=== PATIENT | male | born 1940 | race Caucasian/White ===

== ENCOUNTER 2020-09-02 09:15 | Emergency (ER) | payer OTHER ==
[~2020-09-02] VITALS: Ht 172.7 cm; Wt 83.0 kg
[~2020-09-02 09:15] MED LIST: ASPIR 8181 M1 PO; ATEN25 PO; Alph-E-Mixed400 UNIT PO; CHROMIUM400 MCG PO; EUTHYROX112 MCG PO; Grape Seed50 M1 PO; NIAC500 PO; OXYCONTIN10 MG PO; Prinivil10 MG PO; TESTOSTERONE75 G1 TD; UBID10 PO; VALIUM5 M1 PO; VERAPAMIL SR240 M1 PO
[2020-09-02 10:17] LABS: BASOPHILS ABSOLUTE AUTO 0.02 K/mm3 (0.00-0.23); BASOPHILS PERCENT AUTO 0 % (0-2); EOSINOPHILS ABSOLUTE AUTO 0.11 K/mm3 (0.00-0.68); EOSINOPHILS PERCENT AUTO 2 % (0-6); Hematocrit 46.6 % (37.0-53.0); Hemoglobin 15.8 g/dL (13.5-17.5); IMMATURE GRAN ABSOLUTE AUTO 0.01 K/mm3 (0.00-0.10); IMMATURE GRAN PERCENT AUTO 0 % (0-1); LYMPHOCYTES PERCENT AUTO 17 % (21-46); MONOCYTES ABSOLUTE AUTO 0.38 K/mm3 (0.16-1.47); MONOCYTES PERCENT AUTO 8 % (4-13); Mean Corpuscular HGB Conc 33.9 g/dL (31.5-36.5); Mean Corpuscular Volume 94 fL (80-100); Mean Platelet Volume 8.6 fL (9.1-12.4); NEUTROPHILS ABSOLUTE AUTO 3.45 K/mm3 (1.96-9.15); NEUTROPHILS PERCENT AUTO 72 % (41-73); Platelet Count 118 K/mm3 (150-400); RDW Coefficient Variation 12.1 % (11.7-14.2); RDW Standard Deviation 41.6 fL (35.1-46.3); Red Blood Cell Count 4.94 M/mm3 (4.30-5.90); White Blood Cell Count 4.77 K/mm3 (4.00-11.30)
[2020-09-02 10:19] LABS: Source, Urine Clean Catch
[2020-09-02 10:37] LABS: Alanine Aminotransfer (ALT/SGP 22 U/L (12-78); Albumin/Globulin Ratio 1.1 (0.8-1.8); Alk Phos 100 U/L (50-136); Anion Gap 7 mmol/L (6-16); Aspartate Aminotrans (AST/SGOT 20 U/L (12-37); Bilirubin, Total 0.7 mg/dL (0.1-1.0); Blood Urea Nitrogen 11 mg/dL (8-24); Bun/Creatinine Ratio 13.4 (12.0-20.0); CO2, Blood 28 mmol/L (21-32); Calcium, Blood 9.5 mg/dL (8.5-10.1); Chloride, Blood 103 mmol/L (98-108); Creatinine, Blood 0.82 mg/dL (0.60-1.20); Globulin, Blood 3.5 g/dL (2.2-4.0); Glomerular Filtration Rate >60 (60-); Glucose, Blood 120 mg/dL (70-99); Potassium, Blood 4.1 mmol/L (3.5-5.5); Sodium, Blood 138 mmol/L (136-145); Total Protein, Blood 7.5 g/dL (6.4-8.2)
[2020-09-02 10:42] LABS: Bilirubin, Urine Neg (Neg); Blood, Urine Neg (Neg); Glucose Qualitative, Urine Neg (Neg); Ketones, Urine 2+ (Neg); Leukocyte Esterase, Urine Neg (Neg); Nitrite, Urine Neg (Neg); Protein, Urine Neg (Neg); Urobilinogen, Urine NORM (Normal)
[2020-09-02 10:56] LABS: Appearance, Urine Clear (Clear); Color, Urine Yellow (P-Yellow)
[2020-09-02] MEDS ORDERED: Flagyl500 MG PO (11:45)
[2020-09-02] MEDS ORDERED: Cipro500 MG PO (11:45)
== END 2020-09-02 11:51 | disposition home or self-care (01) ==
LOC: ER 09:15
PROVIDERS: Emergency Medicine
DX: K57.32 Diverticulitis of large intestine without perforation or abscess without bleeding (principal); Z79.82 Long term (current) use of aspirin; Z79.899 Other long term (current) drug therapy; Z88.6 Allergy status to analgesic agent; Z88.0 Allergy status to penicillin; Z88.2 Allergy status to sulfonamides; Z88.8 Allergy status to other drugs, medicaments and biological substances; Z95.1 Presence of aortocoronary bypass graft
CPT/HCPCS: 36415; 74176; 80053; 81003; 83690; 85025; 93005; 93010; 99284-25

== ENCOUNTER 2020-09-24 11:18 | Emergency (ER) | payer OTHER ==
[~2020-09-24] VITALS: Ht 185.4 cm; Wt 80.3 kg
[~2020-09-24 11:18] MED LIST changes: +Cipro500 MG PO; +Flagyl500 MG PO
[2020-09-24] MEDS ORDERED: OXYC5 PO (11:58)
[2020-09-24] MEDS ORDERED: COQ-10100 MG PO (12:03)
[2020-09-24] MEDS ORDERED: [UNRECOGNIZED DRUG - OTHER] PO (12:04)
[2020-09-24] MEDS ORDERED: WILD SALMON OIL PO (12:04)
[2020-09-24] MEDS ORDERED: RED YEAST PO (12:05)
[2020-09-24] MEDS ORDERED: UBIDECARENONE PO (12:05)
[2020-09-24] MEDS ORDERED: ALPHA LIPOIC A600 MG PO (12:06)
[2020-09-24 12:21] LABS: BASOPHILS ABSOLUTE AUTO 0.02 K/mm3 (0.00-0.23); BASOPHILS PERCENT AUTO 1 % (0-2); EOSINOPHILS PERCENT AUTO 0 % (0-6); Hematocrit 49.1 % (37.0-53.0); Hemoglobin 16.6 g/dL (13.5-17.5); IMMATURE GRAN ABSOLUTE AUTO 0.01 K/mm3 (0.00-0.10); IMMATURE GRAN PERCENT AUTO 0 % (0-1); LYMPHOCYTES ABSOLUTE AUTO 0.57 K/mm3 (0.84-5.20); LYMPHOCYTES PERCENT AUTO 20 % (21-46); MONOCYTES ABSOLUTE AUTO 0.36 K/mm3 (0.16-1.47); MONOCYTES PERCENT AUTO 13 % (4-13); Mean Corpuscular HGB 31.4 pg (26.0-34.0); Mean Corpuscular HGB Conc 33.8 g/dL (31.5-36.5); Mean Corpuscular Volume 93 fL (80-100); Mean Platelet Volume 9.5 fL (9.1-12.4); NEUTROPHILS ABSOLUTE AUTO 1.92 K/mm3 (1.96-9.15); NEUTROPHILS PERCENT AUTO 67 % (41-73); Platelet Count 112 K/mm3 (150-400); RDW Coefficient Variation 12.6 % (11.7-14.2); RDW Standard Deviation 43.7 fL (35.1-46.3); Red Blood Cell Count 5.28 M/mm3 (4.30-5.90); White Blood Cell Count 2.88 K/mm3 (4.00-11.30)
[2020-09-24 15:51] LABS: Troponin I <0.015 ng/mL (0.000-0.040)
[2020-09-24 16:07] LABS: Alanine Aminotransfer (ALT/SGP 81 U/L (12-78); Albumin, Blood 3.1 g/dL (3.4-5.0); Albumin/Globulin Ratio 0.9 (0.8-1.8); Alk Phos 82 U/L (50-136); Anion Gap 7 mmol/L (6-16); Aspartate Aminotrans (AST/SGOT 68 U/L (12-37); Bilirubin, Total 0.6 mg/dL (0.1-1.0); Blood Urea Nitrogen 11 mg/dL (8-24); Bun/Creatinine Ratio 12.5 (12.0-20.0); CO2, Blood 27 mmol/L (21-32); Calcium, Blood 8.3 mg/dL (8.5-10.1); Chloride, Blood 97 mmol/L (98-108); Creatinine, Blood 0.88 mg/dL (0.60-1.20); Globulin, Blood 3.5 g/dL (2.2-4.0); Glomerular Filtration Rate >60 (60-); Glucose, Blood 85 mg/dL (70-99); Potassium, Blood 4.3 mmol/L (3.5-5.5); Sodium, Blood 131 mmol/L (136-145); Total Protein, Blood 6.6 g/dL (6.4-8.2)
[2020-09-24 16:24] LABS: Source, Urine Voided
[2020-09-24 16:31] LABS: Appearance, Urine Clear (Clear); Bilirubin, Urine Neg (Neg); Blood, Urine Neg (Neg); Color, Urine Yellow (P-Yellow); Glucose Qualitative, Urine Neg (Neg); Ketones, Urine 2+ (Neg); Leukocyte Esterase, Urine Neg (Neg); Nitrite, Urine Neg (Neg); Protein, Urine 1+ (Neg); Urobilinogen, Urine NORM (Normal); pH, Urine 6.5 (5.0-8.0)
[2020-09-24] MEDS ORDERED: ONDA4ODT SL (16:37)
[2020-09-25 09:00] LABS: HBSAG SCREEN Negative (Negative); HEP A AB, IGM Negative (Negative); HEP B CORE AB, IGM Negative (Negative); HEP C VIRUS AB <0.1 (0.0-0.9)
== END 2020-09-24 17:02 | disposition home or self-care (01) ==
LOC: ER 11:18
PROVIDERS: Emergency Medicine
DX: R10.9 Unspecified abdominal pain (principal); G89.29 Other chronic pain; D72.819 Decreased white blood cell count, unspecified; R74.01 Elevation of levels of liver transaminase levels; M54.5 Low back pain; R53.83 Other fatigue; R53.1 Weakness; Z79.899 Other long term (current) drug therapy; Z88.5 Allergy status to narcotic agent; Z88.0 Allergy status to penicillin; Z88.2 Allergy status to sulfonamides; Z88.8 Allergy status to other drugs, medicaments and biological substances; Z88.1 Allergy status to other antibiotic agents; Z95.1 Presence of aortocoronary bypass graft; Z79.82 Long term (current) use of aspirin
CPT/HCPCS: 36415; 71045; 74176; 80053; 80074; 83735; 84484; 85025; 93005; 93010; 99285-25; J7030

== ENCOUNTER 2020-10-03 02:23 | Inpatient (IN) | payer OTHER ==
[~2020-10-03] VITALS: Ht 172.7 cm; Wt 80.3 kg
[~2020-10-03 02:23] MED LIST changes: +ALPHA LIPOIC A600 MG PO; +COQ-10100 MG PO; +METR500 PO; +ONDA4ODT SL; +OXYC5 PO; +RED YEAST PO; +UBIDECARENONE PO; +WILD SALMON OIL PO; +[UNRECOGNIZED DRUG - OTHER] PO
[2020-10-03 02:55] LABS: BASOPHILS ABSOLUTE AUTO 0.02 K/mm3 (0.00-0.23); BASOPHILS PERCENT AUTO 0 % (0-2); EOSINOPHILS ABSOLUTE AUTO 0.02 K/mm3 (0.00-0.68); EOSINOPHILS PERCENT AUTO 0 % (0-6); Hematocrit 39.6 % (37.0-53.0); Hemoglobin 13.5 g/dL (13.5-17.5); IMMATURE GRAN ABSOLUTE AUTO 0.04 K/mm3 (0.00-0.10); IMMATURE GRAN PERCENT AUTO 1 % (0-1); LYMPHOCYTES ABSOLUTE AUTO 0.32 K/mm3 (0.84-5.20); LYMPHOCYTES PERCENT AUTO 5 % (21-46); MONOCYTES ABSOLUTE AUTO 0.55 K/mm3 (0.16-1.47); MONOCYTES PERCENT AUTO 9 % (4-13); Mean Corpuscular HGB 31.6 pg (26.0-34.0); Mean Corpuscular HGB Conc 34.1 g/dL (31.5-36.5); Mean Corpuscular Volume 93 fL (80-100); Mean Platelet Volume 9.8 fL (9.1-12.4); NEUTROPHILS ABSOLUTE AUTO 5.28 K/mm3 (1.96-9.15); NEUTROPHILS PERCENT AUTO 85 % (41-73); Platelet Count 192 K/mm3 (150-400); RDW Coefficient Variation 12.8 % (11.7-14.2); Red Blood Cell Count 4.27 M/mm3 (4.30-5.90); White Blood Cell Count 6.23 K/mm3 (4.00-11.30)
[2020-10-03 03:09] LABS: Alanine Aminotransfer (ALT/SGP 196 U/L (12-78); Albumin, Blood 2.2 g/dL (3.4-5.0); Albumin/Globulin Ratio 0.5 (0.8-1.8); Alk Phos 120 U/L (50-136); Anion Gap 6 mmol/L (6-16); Aspartate Aminotrans (AST/SGOT 182 U/L (12-37); Bilirubin, Total 0.8 mg/dL (0.1-1.0); Blood Urea Nitrogen 13 mg/dL (8-24); Bun/Creatinine Ratio 14.9 (12.0-20.0); CO2, Blood 27 mmol/L (21-32); Calcium, Blood 8.3 mg/dL (8.5-10.1); Chloride, Blood 97 mmol/L (98-108); Creatinine, Blood 0.87 mg/dL (0.60-1.20); Globulin, Blood 4.1 g/dL (2.2-4.0); Glomerular Filtration Rate >60 (60-); Glucose, Blood 114 mg/dL (70-99); Magnesium, Blood 1.8 mg/dL (1.6-2.4); Sodium, Blood 130 mmol/L (136-145); Total Protein, Blood 6.3 g/dL (6.4-8.2); Troponin I <0.015 ng/mL (0.000-0.040)
[2020-10-03] MEDS ORDERED: LISI5 PO (03:30)
[2020-10-03 03:41] LABS: Influenza A, PCR Negative (NEGATIVE); Influenza B, PCR Negative (NEGATIVE); Resp Syncytial Virus, PCR Negative (NEGATIVE); SARS-Cov-2 (COVID-19) PCR, MMC Negative (NEGATIVE)
[2020-10-03 03:53] LABS: Source, Urine Clean Catch
[2020-10-03 03:55] LABS: Appearance, Urine Clear (Clear); Bilirubin, Urine Neg (Neg); Blood, Urine Neg (Neg); Color, Urine Amber (P-Yellow); Glucose Qualitative, Urine Neg (Neg); Ketones, Urine Neg (Neg); Leukocyte Esterase, Urine 1+ (Neg); Nitrite, Urine Neg (Neg); Protein, Urine 2+ (Neg); Urobilinogen, Urine NORM (Normal)
[2020-10-03 03:55] LABS: Free Thyroxine 1.19 ng/dL (0.70-1.60); Thyroid Stimulating Hormone 1.06 uIU/mL (0.360-4.800); Triiodothyronine, Free 1.02 pg/mL (2.18-3.98)
[2020-10-03 04:01] LABS: Bacteria Mod /hpf; Red Blood Cells, Urine 0-2 /hpf (0-2); Squamous Epithelial Cells Not Seen /hpf (Few)
[2020-10-03 06:04] LABS: Influenza A, PCR Negative (NEGATIVE); Influenza B, PCR Negative (NEGATIVE); Resp Syncytial Virus, PCR Negative (NEGATIVE); SARS-Cov-2 (COVID-19) PCR, MMC Positive (NEGATIVE)
[2020-10-03 10:54] LABS: C-REACTIVE PROTEIN, EXT RANGE 16.7 mg/dL (0.000-0.300)
--- NOTE | 2020-10-03 15:11 | NUR ---
REPORT GIVEN TO YOVANY YEAGER ON MEDICAL.
--- NOTE | 2020-10-03 18:28 | NUR ---
PT ADMITTED FROM PCU 16 AROUND 1515- ALERT AND ORIENTED, AMBULATED SBA W/C TO BED, SLOW BUT ADQ STRENGTH. OXYGEN AT 2L, SATS 96%. LUNGS CLEAR, OCCASIONAL COUGH MIN PRODUCTION. ORIENTED TO ROOM SET UP AND CALL LIGHT.
--- NOTE | 2020-10-03 18:31 | NUR ---
SUMMARY- PT ALERT AND ORIENTED. TOLERATING FOOD AND FLUIDS. GETS UP TO BED SIDE COMMODE INDEPENDANT WITH STANDBY FOR SAFETY. VSS AFIBRILE, OXYGEN 2L. RESP EVEN UNLABORED. WILL REPORT TO NIGHT RN
--- NOTE | 2020-10-04 04:03 | NUR ---
SHIFT SUMMARY ASSUMED CARE OF PT AT 1900. PT IS A/OX4. HEART SOUNDS REGULAR, LUNG SOUNDS HAVE CRACKLES AT THE BASES, PT DENIES SOB. PT TOOK O2 OF AT THE BEGINNING OF THE SHIFT. SATURATIONS REMAINED ABOVE 90%. PT IS SBA TO COMMODE. NO ACUTE EVENTS DURING THE NIGHT. PT DID NOT SLEEPT WELL. CALL LIGHT IN REACH, BED IN LOWEST POSITION.
[2020-10-04 05:13] LABS: BASOPHILS ABSOLUTE AUTO 0.03 K/mm3 (0.00-0.23); BASOPHILS PERCENT AUTO 1 % (0-2); EOSINOPHILS PERCENT AUTO 0 % (0-6); Hematocrit 42.2 % (37.0-53.0); Hemoglobin 14.2 g/dL (13.5-17.5); IMMATURE GRAN ABSOLUTE AUTO 0.03 K/mm3 (0.00-0.10); IMMATURE GRAN PERCENT AUTO 1 % (0-1); LYMPHOCYTES ABSOLUTE AUTO 0.38 K/mm3 (0.84-5.20); LYMPHOCYTES PERCENT AUTO 6 % (21-46); MONOCYTES ABSOLUTE AUTO 0.26 K/mm3 (0.16-1.47); MONOCYTES PERCENT AUTO 4 % (4-13); Mean Corpuscular HGB 31.3 pg (26.0-34.0); Mean Corpuscular HGB Conc 33.6 g/dL (31.5-36.5); Mean Corpuscular Volume 93 fL (80-100); Mean Platelet Volume 10.1 fL (9.1-12.4); NEUTROPHILS PERCENT AUTO 88 % (41-73); Platelet Count 225 K/mm3 (150-400); RDW Standard Deviation 44.2 fL (35.1-46.3); Red Blood Cell Count 4.53 M/mm3 (4.30-5.90)
[2020-10-04 05:51] LABS: Alanine Aminotransfer (ALT/SGP 162 U/L (12-78); Albumin, Blood 2.2 g/dL (3.4-5.0); Albumin/Globulin Ratio 0.5 (0.8-1.8); Alk Phos 121 U/L (50-136); Anion Gap 7 mmol/L (6-16); Aspartate Aminotrans (AST/SGOT 95 U/L (12-37); Bilirubin, Total 0.5 mg/dL (0.1-1.0); Blood Urea Nitrogen 22 mg/dL (8-24); CO2, Blood 28 mmol/L (21-32); Calcium, Blood 8.9 mg/dL (8.5-10.1); Chloride, Blood 101 mmol/L (98-108); Creatinine, Blood 0.79 mg/dL (0.60-1.20); Globulin, Blood 4.3 g/dL (2.2-4.0); Glomerular Filtration Rate >60 (60-); Glucose, Blood 165 mg/dL (70-99); Lactate Dehydrogenase (Ld),Bld 183 U/L (100-240); Magnesium, Blood 2.4 mg/dL (1.6-2.4); Potassium, Blood 3.5 mmol/L (3.5-5.5); Sodium, Blood 136 mmol/L (136-145); Total Protein, Blood 6.5 g/dL (6.4-8.2)
--- NOTE | 2020-10-04 11:59 | NUR ---
Patient is sitting on EOB and alert. Patient tells me at length about his life starting in the late 50's until the present. Patient talks about family unit complications, his careers, his many surgeries, his current relationships and his spiritual journey (which began [employer] and for decades until now he has been a member of the [employer] churches. Patient talks about his Akiko's concerns for his health. I provide therapeutic listening and prayer. Patient responds well and shows signs of an elevated mood.
--- NOTE | 2020-10-04 17:34 | NUR ---
SUMMARY- PT ALERT AND ORIENTED. GETS UP TO THE BSC INDEPENDANT- STEADY ON FEET, KNOWS LIMITS. PT'S LUNGS CLEAR, MIN COUGH. BP LOW THIS AM, HELD TENORMIN AND LISINOPRIL AND NOTIFIED DR MARTINEZ. DR MARTINEZ OK'D LISINOPRIL AND DOSE GIVEN A LITTLE AFTER LUNCH. PT TOLERATING PO FOOD AND FLUIDS. AFIBRILE AND SATS MID 90'S ON ROOM AIR. DRESSINGS APPLIED TO 2 OPEN AREAS ON FEET. SEE ORDERS.
--- NOTE | 2020-10-04 18:04 | NUR ---
PT DECLINES BLOOD SUGAR CHECKS, STATING HE ONLY CHECKS ONCE A DAY AND JUST STARTED HIS ORAL AGENTS. AND REFUSING INSULIN ANYWAY. WILL PASS ON TO KARLA RN AND ADJUST ORDERS WITH DR APOLINAR GARNER.
--- NOTE | 2020-10-05 04:12 | NUR ---
SHIFT SUMMARY ASSUMED CARE OF PT AT 1900. PT IS A/OX4. HEART SOUNDS REGULAR, LUNG SOUNDS HAVE FINE CRACKLES AT BASES, DENIES SOB. PT DECLINED GLUCOSE CHECKS BUT WAS EDUCATED ABOUT STEROIDS AND AGREED TO ONE. PT WOUNDS ON FEET ARE C/D/I. PUT USED URINAL AT BEDSIDE. URINE CLEAR AND YELLOW. NO ACUTE EVENTS DURING THE NIGHT. PT SLEPT T/O THE NIGHT. CALL LIGHT IN REACH, BED IN LOWEST POSTION, WILL CONTINUE TO MONITOR.
[2020-10-05 05:10] LABS: BASOPHILS ABSOLUTE AUTO 0.02 K/mm3 (0.00-0.23); BASOPHILS PERCENT AUTO 0 % (0-2); EOSINOPHILS PERCENT AUTO 0 % (0-6); Hematocrit 41.5 % (37.0-53.0); Hemoglobin 13.7 g/dL (13.5-17.5); IMMATURE GRAN ABSOLUTE AUTO 0.03 K/mm3 (0.00-0.10); IMMATURE GRAN PERCENT AUTO 0 % (0-1); LYMPHOCYTES ABSOLUTE AUTO 0.49 K/mm3 (0.84-5.20); LYMPHOCYTES PERCENT AUTO 7 % (21-46); MONOCYTES ABSOLUTE AUTO 0.28 K/mm3 (0.16-1.47); MONOCYTES PERCENT AUTO 4 % (4-13); Mean Corpuscular HGB 30.3 pg (26.0-34.0); Mean Corpuscular Volume 92 fL (80-100); Mean Platelet Volume 9.8 fL (9.1-12.4); NEUTROPHILS ABSOLUTE AUTO 6.02 K/mm3 (1.96-9.15); NEUTROPHILS PERCENT AUTO 88 % (41-73); Platelet Count 262 K/mm3 (150-400); RDW Coefficient Variation 12.9 % (11.7-14.2); Red Blood Cell Count 4.52 M/mm3 (4.30-5.90); White Blood Cell Count 6.84 K/mm3 (4.00-11.30)
[2020-10-05 05:41] LABS: Alanine Aminotransfer (ALT/SGP 122 U/L (12-78); Albumin, Blood 2.1 g/dL (3.4-5.0); Albumin/Globulin Ratio 0.5 (0.8-1.8); Alk Phos 120 U/L (50-136); Anion Gap 4 mmol/L (6-16); Aspartate Aminotrans (AST/SGOT 54 U/L (12-37); Bilirubin, Total 0.4 mg/dL (0.1-1.0); Blood Urea Nitrogen 24 mg/dL (8-24); Bun/Creatinine Ratio 30.7 (12.0-20.0); CO2, Blood 29 mmol/L (21-32); Calcium, Blood 9.1 mg/dL (8.5-10.1); Chloride, Blood 106 mmol/L (98-108); Creatinine, Blood 0.78 mg/dL (0.60-1.20); Glomerular Filtration Rate >60 (60-); Glucose, Blood 196 mg/dL (70-99); Potassium, Blood 4.2 mmol/L (3.5-5.5); Sodium, Blood 139 mmol/L (136-145); Total Protein, Blood 6.1 g/dL (6.4-8.2)
--- NOTE | 2020-10-05 18:04 | NUR ---
SHIFT SUMMARY PT AXO, PLEASANT AND COOPERATIVE WITH CARE. VSS. PT UP AD JOSEFINA TO BSC. IV PATENT AND SALINE LOCKED. 93% ON RA. NO ACUTE CHANGES THIS SHIFT. BED IN LOW POSITION, CALL LIGHT WITHIN REACH. MEDICATED FOR PAIN PER EMAR THOUGH PATIENT STATES THAT THE PAIN "NEVER GOES AWAY."
--- NOTE | 2020-10-06 04:29 | NUR ---
PAINTER RAILROAD CAR SUMMARY PT A&OX4, ABLE TO MAKE NEEDS KNOWN, PLEASANT AND COOPERATIVE TO CARE. PT MEDICATED FOR LOWER BACK PAIN PER EMAR. PT DENIES CP, SOB, OR N&V. RESP EVEN AND UNLABORED, SATS 93% RA. PT CALM AND RESTED IN BED T/O SHIFT. BED AT LOWEST POSITION, CALL LIGHT WITHIN REACH.
[2020-10-06 05:58] LABS: BASOPHILS ABSOLUTE AUTO 0.03 K/mm3 (0.00-0.23); BASOPHILS PERCENT AUTO 0 % (0-2); EOSINOPHILS PERCENT AUTO 0 % (0-6); Hematocrit 42.7 % (37.0-53.0); IMMATURE GRAN ABSOLUTE AUTO 0.04 K/mm3 (0.00-0.10); IMMATURE GRAN PERCENT AUTO 1 % (0-1); LYMPHOCYTES ABSOLUTE AUTO 0.63 K/mm3 (0.84-5.20); LYMPHOCYTES PERCENT AUTO 7 % (21-46); MONOCYTES ABSOLUTE AUTO 0.62 K/mm3 (0.16-1.47); MONOCYTES PERCENT AUTO 7 % (4-13); Mean Corpuscular HGB 30.6 pg (26.0-34.0); Mean Corpuscular HGB Conc 32.8 g/dL (31.5-36.5); Mean Corpuscular Volume 93 fL (80-100); Mean Platelet Volume 9.4 fL (9.1-12.4); NEUTROPHILS ABSOLUTE AUTO 7.19 K/mm3 (1.96-9.15); NEUTROPHILS PERCENT AUTO 84 % (41-73); Platelet Count 338 K/mm3 (150-400); RDW Coefficient Variation 13.2 % (11.7-14.2); RDW Standard Deviation 45.5 fL (35.1-46.3); Red Blood Cell Count 4.57 M/mm3 (4.30-5.90); White Blood Cell Count 8.51 K/mm3 (4.00-11.30)
[2020-10-06 06:18] LABS: Alanine Aminotransfer (ALT/SGP 127 U/L (12-78); Albumin, Blood 2.3 g/dL (3.4-5.0); Albumin/Globulin Ratio 0.6 (0.8-1.8); Alk Phos 120 U/L (50-136); Anion Gap 5 mmol/L (6-16); Aspartate Aminotrans (AST/SGOT 82 U/L (12-37); Bilirubin, Total 0.4 mg/dL (0.1-1.0); Blood Urea Nitrogen 25 mg/dL (8-24); Bun/Creatinine Ratio 32.1 (12.0-20.0); CO2, Blood 30 mmol/L (21-32); Calcium, Blood 9.1 mg/dL (8.5-10.1); Chloride, Blood 104 mmol/L (98-108); Creatinine, Blood 0.78 mg/dL (0.60-1.20); Globulin, Blood 3.8 g/dL (2.2-4.0); Glomerular Filtration Rate >60 (60-); Glucose, Blood 182 mg/dL (70-99); Potassium, Blood 4.3 mmol/L (3.5-5.5); Sodium, Blood 139 mmol/L (136-145); Total Protein, Blood 6.1 g/dL (6.4-8.2)
--- NOTE | 2020-10-06 18:09 | NUR ---
PT AOX4 AND COOPERATIVE OF CARE. PT HAS BEEN PLEASANT AND CALLS APPROPRIATELY. PT USES WALKER TO AMBULATE AND WAS ABLE TO TAKE A SHOWER WITH MINIMAL ASSIST. PT DENIED ANY PAIN AND REQUESTED NEW BANDAGES FOR HIS FEET SO HE COULD TO THE WOUND CARE. FEET WOUNDS LOOK TO BE HEALING. PT'S CBG HAS BEEN GOING UP TODAY AND LAST ONE WAS 322. PT CONTINUES TO REFUSE INSULIN AT THIS TIME. WILL CONTINUE TO MONITOR.
--- NOTE | 2020-10-06 21:27 | NUR ---
LATE ENTRY 1899 RN INFORMED THIS RN THAT PT HAS BEEN REFUSING INSULIN BUT WILL TAKE ORAL GLYCEMIC CONTROL MEDICATION. 2029 PT REFUSED TO HAVE CBG DONE. INSULIN NOT GIVEN.
--- NOTE | 2020-10-06 22:07 | NUR ---
2138 PT'S DAUGHTER CALLED WITH QUESTIONS OF PT COMING HOME TOMORROW. ASKED THIS RN QUESTIONS ABOUT MEDICATION, VITAL SIGNS, AND PT'S ABILITY TO DO ADLS. ASKED THIS RN IF PERSON COMING TO PICK PT UP SHOULD TAKE PRECAUTIONS, THIS RN ADVISED TO HAVE PERSON WEAR MASK. PT'S DAUGHTER EXPRESSED GRATITUDE FOR TAKING TIME TO ANSWER QUESTIONS.
--- NOTE | 2020-10-07 05:36 | NUR ---
SHIFT SUMMARY NO ACUTE CHANGES THIS SHIFT. PT IS EAGER TO GO HOME TODAY. PT'S DAUGHTER CALLED FOR UPDATE, SEE NOTE. PT HAD SOME TROUBLE SLEEPING, THIS RN OFFERED MELATONIN, PT DECLINED. PT IS A&O X4, IND IN ROOM, CALLS APPROPRIATELY. USES URINAL AND WALKER TO BSC. PT IS LAYING IN BED WITH EYES CLOSED, EVEN AND UNLABORED RESPIRATIONS. BED IN LOWERED POSITION WITH SIDE RAILS UP X2 FOR SAFETY. CALL LIGHT AND PERSONAL ITEMS WITH IN REACH. NO APPARENT NEEDS OR DISTRESS AT THIS TIME, WILL CONTINUE TO MONITOR UNTIL REPORT GIVEN TO DAY RN.
[2020-10-07] MEDS ORDERED: DEXA6 PO (11:12)
[2020-10-07] MEDS ORDERED: GLIP5 PO (11:30)
--- NOTE | 2020-10-07 15:46 | NUR ---
PT DISCHARGED TODAY. PT AOX4 AND COOPERATIVE OF CARE. PT RECIEVED HIS LAST REMDESIVIR PRIOR TO DISCHARGE. PT HAS BEEN DOING WELL INDEPENDENTLY IN ROOM AND HAS BEEN ON RA. PT USES WALKER AND CALLS APPROPRIATELY. NO DISTRESS NOTED AND ALL PAPERWORK REVIEWED. FRIEND WHO ALREADY HAS HAD COVID WAS COMMING TO DRIVE PT HOME. PERSONAL BELONGS WERE COLLECTED AND SENT WITH PT. PT ESCORTED OUT WITH MASK ON IN WHEEL CHAIR.
== END 2020-10-07 14:33 | disposition home or self-care (01) | DRG 177 ==
LOC: ER 02:23 → PCU 02:24 → MEDS 02:24 → PCU 02:24 → MEDS 15:13
PROVIDERS: Emergency Medicine; Family Medicine; ADMIT Internal Medicine
PROC: 3E0333Z Introduction of Anti-inflammatory into Peripheral Vein, Percutaneous Approach (ICD-10-PCS; principal; 2020-10-04)
PROC: XW033E5 Introduction of Remdesivir Anti-infective into Peripheral Vein, Percutaneous Approach, New Technology Group 5 (ICD-10-PCS; 2020-10-04)
DX: U07.1 COVID-19 (principal); J12.89 Other viral pneumonia; J96.01 Acute respiratory failure with hypoxia; E87.1 Hypo-osmolality and hyponatremia; N39.0 Urinary tract infection, site not specified; E11.9 Type 2 diabetes mellitus without complications; G89.4 Chronic pain syndrome; I25.10 Atherosclerotic heart disease of native coronary artery without angina pectoris; Z95.1 Presence of aortocoronary bypass graft; M54.9 Dorsalgia, unspecified; I25.2 Old myocardial infarction
CPT/HCPCS: 0241U; 36415; 71260; 80053; 81001; 82947; 83605; 83615; 83735; 83880; 84145; 84439; 84443; 84481; 84484; 85025; 85379; 86140; 87086; 93005; 93010; 96365; 96375; 96376; 99285-25; A9270-GY; G0378; J1940; J7030; J7040; Q9967

== ENCOUNTER → 2020-12-10 | Outpatient (CLI) | payer OTHER, SELFPAY ==
[~2020-12-10] MED LIST changes: +DEXA6 PO; +GLIP5 PO; +LISI5 PO
== END | disposition home or self-care (01) ==
LOC: LAB 15:17 → LAB SHORT 15:17
DX: E11.69 Type 2 diabetes mellitus with other specified complication (principal); M86.171 Other acute osteomyelitis, right ankle and foot
CPT/HCPCS: 88305; 88311

== ENCOUNTER → 2021-11-18 | Outpatient (CLI) | payer OTHER | END | disposition home or self-care (01) | LOC: LAB SHORT 14:03 | DX: E11.42 Type 2 diabetes mellitus with diabetic polyneuropathy (principal); E11.621 Type 2 diabetes mellitus with foot ulcer; L97.524 Non-pressure chronic ulcer of other part of left foot with necrosis of bone; M86.9 Osteomyelitis, unspecified | CPT/HCPCS: 87070; 87071; 87075; 87077; 87186; 87205 ==

== ENCOUNTER 2023-02-03 09:01 | Inpatient (IN) | payer OTHER ==
[2023-02-03] VITALS (16 sets, daily range): BP systolic 128–201; BP diastolic 70–115
[~2023-02-03] VITALS: Ht 172.7 cm; Wt 83.3 kg
[2023-02-03] MEDS ORDERED: Ventolin5 MG/1 ML INH (09:46)
[2023-02-03] MEDS ORDERED: ALPHA LIPOIC ACID (09:46)
[2023-02-03] MEDS ORDERED: ATEN25 PO (09:47)
[2023-02-03] MEDS ORDERED: Chromium Pico400 MCG (09:47)
[2023-02-03] MEDS ORDERED: COENZYME Q10200 MG PO (09:47)
[2023-02-03] MEDS ORDERED: ASPIR 8181 M1 PO (09:47)
[2023-02-03] MEDS ORDERED: GLIP5 PO (09:48)
[2023-02-03] MEDS ORDERED: DIAZ5 PO (09:48)
[2023-02-03] MEDS ORDERED: Grape Seed50 M1 (09:49)
[2023-02-03] MEDS ORDERED: [UNRECOGNIZED DRUG - OTHER] (09:49)
[2023-02-03] MEDS ORDERED: [UNRECOGNIZED DRUG - OTHER] PO (09:50)
[2023-02-03] MEDS ORDERED: LINE600 PO (09:51)
[2023-02-03] MEDS ORDERED: Prinivil10 MG PO (09:51)
[2023-02-03] MEDS ORDERED: LEVSOD112 PO (09:51)
[2023-02-03] MEDS ORDERED: NIAC500 PO (09:52)
[2023-02-03] MEDS ORDERED: [UNRECOGNIZED DRUG - OTHER] (09:53)
[2023-02-03] MEDS ORDERED: OXYCODONE PO (09:54)
[2023-02-03] MEDS ORDERED: ONELAX FIBER T368 GM (09:55)
[2023-02-03] MEDS ORDERED: RED YEAST RICE (09:55)
[2023-02-03] MEDS ORDERED: SALMON OIL PO (09:56)
[2023-02-03] MEDS ORDERED: VERA240ER PO (09:57)
[2023-02-03] MEDS ORDERED: TOCO1000 PO (09:57)
--- NOTE | 2023-02-03 16:13 | NUR ---
CALL PLACED TO DR. LAGUNAS CLARIFICATION OF HEPARIN DRIP NEEDED PRIOR TO STARTING INFUSION. LEFT MESSAGE WITH CALL BACK NUMBER REQUESTING RETURN CALL. RN TO CONTINUE TO MONITOR.
--- NOTE | 2023-02-03 19:45 | NUR ---
PT ARRIVED TO ICU AT 1420 ARRIVES VIA BED, TRANSFERRED FROM IR. A/O. O2 SAT > 95% ON ROOM AIR, LUNGS CTA. CONTINUOUS CARDIAC MONITORING, SR, BP STABLE. DIET ORDERED, PT HAD ENSURE BUT DECLINES ADDITIONAL FOOD, BS NORMOACTIVE, DENIES NAUSEA/VOMITING. VOIDS USING URINAL. SKIN WITH DRESSING TO RIGHT GREAT TOE PLACED BY DR. LAGUNAS PER PT. RIGHT FEM ARTERIAL SHEATH IN PLACE INFUSING HEPARIN AND TPA. ORDERS VERIFIED BY DR. LAGUNAS. PLAN IS TO RETURN TO IR TOMORROW FOR COMPLETION OF PROCEDURE. HOSPITALIST CONSULT, DR. GALVAN TO BEDSIDE, ADMISSION COMPLETED.
[2023-02-04] VITALS (39 sets, daily range): BP systolic 67–232; BP diastolic 41–119
--- NOTE | 2023-02-04 03:01 | NUR ---
SHIFT SUMMARY: At the beginning of my shift, pt called complaining of severe left leg pain. Medicated with dilaudid, oxycodone and tylenol. Pain unresolved despite interventions. I called the hospitalist electronic maintenance supervisor and received orders to increase the oxycodone dose to 10mg q4hr. Pulses checked using doppler q2hrs, unable to find pedal pulses on either leg. Post-tibial pulse present by doppler on right side but absent on left. Cath site checked q1 hour. Initially, the site was soft, clean, dry and intact. At around 2300, I noticed a medium sized hematoma forming in the right groin. I called Dr. Collins who instructed me to hold manual pressure for 30min. Manual pressure held and size of hematoma decreased significantly. I also told him that the fibrinogen level dropped from 450 to 184, and he was unconcerned. Dr. Collins to bedside to examine patient. Dr. Collins was unconcerned with the size of the hematoma and amount of oozing from cath site. Order received to increase frequency of dilaudid IV pushes for pain and instructed to give midazolam for anxiety. Received orders for anti-hypertensive PRNS. At around 0015, the patient reported increased swelling and firmness of the left leg along with excruciating pain unresolved by pain medication. I contacted Dr. Collins and received order to stop TPA and place surgical consult. house calls nurse orthopedic surgeon contacted and TPA stopped. Dr. Collins to bedside- order received to stop heparin infusion. Pt made NPO. He has only drank water and a little bit of ensure so far during my shift. Patient's sister Elida updated via phone. At around 0100, I noticed that the hematoma had returned on his right groin and was slightly larger than before based on my markings. I held manual pressure until orthopedic surgeon came to bedside to evaluate. Holding manual pressure decreases the size of the hematoma, but it slowly grows again when pressure is released and I noticed increased bleeding from the site. Dressing was saturated and no longer adhering well, so the dressing was changed. Charge nurse consulted and fem-stop applied with pressure set at 90mmhg at 0145. Plan is for patient to go to the OR emergently for fasciotomy. 0226- patient taken to OR.
--- NOTE | 2023-02-04 05:59 | NUR ---
SHIFT SUMMARY Pt. 2: Patient arrived from OR at 0400. Post anesthesia, he is drowsy and confused yet oriented to self and place. Repeatedly tries to pull at lines and move around in the bed. 1:1 RN at bedside for now. Left lower extremity wrapped in Joshua wrap- unable to assess. Left foot looks more dusky/ purple than before he left. Pulses absent in left foot, doppler pulse present on right posterior tibial. R groin site bruised yet soft, less swollen than prior to surgery. Patient reports minimal pain. Pressure monitoring set up for R femoral sheath. Art line showing hypertension. PRNs given. As of 0600, his SBP is running in the 130s-140s. He has not needed PRN meds for pain and he is now sleeping. R groin site remains soft with some bruising and minimal oozing.
[2023-02-04 06:00] LABS: BASOPHILS ABSOLUTE AUTO 0.04 K/mm3 (0.00-0.23); BASOPHILS PERCENT AUTO 0 % (0-2); EOSINOPHILS PERCENT AUTO 0 % (0-6); Hematocrit 45.8 % (37.0-53.0); Hemoglobin 16.1 g/dL (13.5-17.5); IMMATURE GRAN ABSOLUTE AUTO 0.04 K/mm3 (0.00-0.10); IMMATURE GRAN PERCENT AUTO 0 % (0-1); LYMPHOCYTES ABSOLUTE AUTO 0.76 K/mm3 (0.84-5.20); LYMPHOCYTES PERCENT AUTO 5 % (21-46); MONOCYTES ABSOLUTE AUTO 1.04 K/mm3 (0.16-1.47); MONOCYTES PERCENT AUTO 7 % (4-13); Mean Corpuscular HGB 29.9 pg (26.0-34.0); Mean Corpuscular HGB Conc 35.2 g/dL (31.5-36.5); Mean Corpuscular Volume 85 fL (80-100); Mean Platelet Volume 8.8 fL (9.1-12.4); NEUTROPHILS ABSOLUTE AUTO 12.39 K/mm3 (1.96-9.15); NEUTROPHILS PERCENT AUTO 87 % (41-73); Platelet Count 168 K/mm3 (150-400); RDW Coefficient Variation 13.1 % (11.7-14.2); RDW Standard Deviation 40.2 fL (35.1-46.3); Red Blood Cell Count 5.38 M/mm3 (4.30-5.90); White Blood Cell Count 14.27 K/mm3 (4.00-11.30)
--- NOTE | 2023-02-04 07:43 | NUR ---
0700--- Assume care of patient Patient is awake and alert. He is oriented to place, mildly to situation, went over what the surgeon did for him last night due to his left leg faciotomy. He is able to move all extremeties however left leg is painful 6/10 which he states is much better than last nights pain. His left food is dusky and cold. Joshua wrap is around left calf. He has an iv to right ac, saline locked. His bp is elevated with activity, sheath to right femoral has an pham in place with good wave form on monitor. Patient voided in urinal this am. Called spouse and gave her an update on pt's condition. Will continue care for the day.
[2023-02-04 09:25] LABS: Bun/Creatinine Ratio 17.3 (12.0-20.0); Calcium, Blood 8.6 mg/dL (8.5-10.1); Creatinine, Blood 0.81 mg/dL (0.60-1.20); Potassium, Blood 4.1 mmol/L (3.5-5.5)
--- NOTE | 2023-02-04 10:42 | NUR ---
Pt. is awake and welcomes my visit. Pts. spouse and a clergy are present. Pt. 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 Facilitate a life review and consider matters of nadia and belief. Pt. is a little unsettled by the unkown clotting concerns in his leg. Listen with empathy and a calming presence. Prayed with Pt., spouse and guest. Pt. and spouse verbalize gratitude for the spiritual care visit, and welcome this community mental health worker to return.
--- NOTE | 2023-02-04 12:09 | NUR ---
1200 NOON PROGRESS NOTE. PATIENT IS AWAKE STILL. HE COMPLAINS OF PAIN FREQ. GIVING HIM HIS OXYCODONE AND DILAUDID. HE GOT A NEW POWERGLIDE PLACED TO RIGHT UPPER ARM. BP BETTER S/P MULTIPLE BP MEDICATION GIVEN. PLACED 3 ABD DRESSING AROUND LEFT CALF TO REINFORCE WITH MAYUR WRAP DUE TO THE BLEEDING LEAKING THROUGH.. MODERATE AMOUNT OF SERIOUS FLUID OUT. UPDATED DAUGHTER ASAD IN [place] VIA PHONE AND SPOUSE AT BEDSIDE WITH FRIEND. AWAITING TO GO BACK TO CATHLAB.
--- NOTE | 2023-02-04 13:51 | NUR ---
Pt kps score is 50%. will formulate plan after intervention. pt hisgh risk for readmission and difficult pain managment. will follow up.
[2023-02-04 17:11] LABS: Hematocrit 40.6 % (37.0-53.0); Hemoglobin 13.9 g/dL (13.5-17.5)
--- NOTE | 2023-02-04 18:15 | NUR ---
S/P UNIX ENGINEER REVASCULARING LFT LEG PATIENT HAS DOPPLER PULSE TO LEFT POST TIBIAL FOOT WARM AND RED/PURPLE COLOR. pATIENT HAS PALE SKIN COLOR ON FACE AND PALE LIPS. LEFT CALF BLEEDING AND SOAKING [address] HAAS CAME TO BEDSIDE AND IS OK WITH THE BLEEDING SHOWING FLOW, TOLD TO REDRESS THE DRESSING AND REINFORCE WHICH THIS RN DID WITH 3 Abd and kerlex and new ac bandage. patients foot turn paler and cooler when leg was elevated to do dressing.. h+h collected levels dropped 3 points from earlier labs. after long discussion pt ok to get blood if it matches to what he is.. he states he is a rare blood type. bp dropped 40 points in 40 min from being back from cathlab. bolus normal saline started for hypotension. connected with dr ashton and he is ok with the iv fluid bolus and the type an cross. and blood if necessary. awaiting results.
[2023-02-04 19:49] LABS: Hematocrit 33.6 % (37.0-53.0); Hemoglobin 11.2 g/dL (13.5-17.5)
--- NOTE | 2023-02-04 21:30 | NUR ---
ASSUMPTION OF CARE/ASSESSMENT: ASSUMED CARE OF PT AT 1900. PT IS A&O X 4, LAYING IN BED AND VERY PLEASANT. PT HAS PAIN COMPLAINT OF 8/10 PAIN IN L. LEG; PT MEDICATED PER EMAR. PT ON RA WITH CLEAR LUNG SOUNDS T/O AND SPO2 94<. SR ON MONITOR WITH HR IN THE 60'S AND SBP 90'S, MAP 62-64. PT HAS HYPOACTIVE BOWEL SOUNDS IN ALL QUADRANTS AND TOLERATING PO INTAKE; PT WILL BE NPO AFTER MIDNIGHT IN PREPARATION FOR SURGERY. PT USING URINAL TO VOID AND BEDPAIN FOR ELIMINATION. PT HAS PALPABLE PULSE IN BUE AND DOPPLER FOR POSTERIOR TIBIAL PULSES; PT FEET ARE COOL TO TOUCH AND CAP REFIL 3 SECONDS<. PT HAS A FACIOTOMY ON BOTH SIDES OF THE LEFT LEG. A NEW DRESSING CHANGE PLACED; L. CALF REMAINS VERY SWOLLEN. PT'S DAUGHTER, ASAD, GIVEN UPDATE AND ALL QUESTIONS ANSWERED AT THIS TIME. DR DUNN CALLED THIS RN AND UPDATED REGARDING TREATMENT PLAN FOR THE PT'S LEFT LEG; PROVIDER STATES THAT THE PT WILL BE GETTING A LEFT BKA. PT AWARE AND AND PROCESSING NEW TREATMENT PLAN. BED LOWERED, CALL LIGHT IN REACH, WILL CONTINUE TO MONITOR.
[2023-02-05] VITALS (80 sets, daily range): BP systolic 61–149; BP diastolic 36–122
[2023-02-05 00:19] LABS: Hematocrit 32.8 % (37.0-53.0)
--- NOTE | 2023-02-05 03:19 | NUR ---
PT UPDATE: BP ARE STARTING TO DROP WITH SBP 60'S AND MAP 51; DR JASSO NOTIFIED AND ORDERS RECIEVED FOR 500 ML BOLUS. PT SLIGHTLY RESPONSIVE AND SBP INCREASED TO 70-80. HALF HOUR AFTER THE FLUID BOLUS ENDED, SBP BEGAN DROPPING AND ARE NOW IN THE 50'S. NEDRA PARKER NOTIFIED AND ANOTHER 500 ML BOLUS ORDERS. IF PT IS NOT RESPONSIVE TO SECONDS FLUID BOLUS ORDERS FOR LEVOPHED TO BE STARTED. PT REMAINS ALERT TO VERBAL STIMULI AND CAN ANSWER ALL ORIENTING QUESTIONS APPROPRITELY, BUT APPEARS MORE WEAK AND SOFT SPOKEN. WHEN HAVING A CONVERSATIONS WITH THE PT, THE PT MUMMBLES WORDS AND FALLS ASLEEP DURING CONVERSATIONS. WILL CONTINUE TO MONITOR CLOSELY.
[2023-02-05 03:40] LABS: Bun/Creatinine Ratio 16.6 (12.0-20.0); Calcium, Blood 7.4 mg/dL (8.5-10.1); Creatinine, Blood 1.57 mg/dL (0.60-1.20); Potassium, Blood 4.5 mmol/L (3.5-5.5)
[2023-02-05 04:51] LABS: BASOPHILS ABSOLUTE AUTO 0.05 K/mm3 (0.00-0.23); BASOPHILS PERCENT AUTO 0 % (0-2); EOSINOPHILS ABSOLUTE AUTO 0.05 K/mm3 (0.00-0.68); EOSINOPHILS PERCENT AUTO 0 % (0-6); Hematocrit 27.5 % (37.0-53.0); Hemoglobin 9.2 g/dL (13.5-17.5); IMMATURE GRAN ABSOLUTE AUTO 0.04 K/mm3 (0.00-0.10); IMMATURE GRAN PERCENT AUTO 0 % (0-1); LYMPHOCYTES ABSOLUTE AUTO 1.69 K/mm3 (0.84-5.20); LYMPHOCYTES PERCENT AUTO 11 % (21-46); MONOCYTES ABSOLUTE AUTO 1.93 K/mm3 (0.16-1.47); MONOCYTES PERCENT AUTO 12 % (4-13); Mean Corpuscular HGB 30.4 pg (26.0-34.0); Mean Corpuscular HGB Conc 33.5 g/dL (31.5-36.5); Mean Platelet Volume 9.8 fL (9.1-12.4); NEUTROPHILS ABSOLUTE AUTO 12.23 K/mm3 (1.96-9.15); NEUTROPHILS PERCENT AUTO 76 % (41-73); Platelet Count 171 K/mm3 (150-400); RDW Coefficient Variation 13.6 % (11.7-14.2); RDW Standard Deviation 45.2 fL (35.1-46.3); Red Blood Cell Count 3.03 M/mm3 (4.30-5.90); White Blood Cell Count 15.99 K/mm3 (4.00-11.30)
[2023-02-05 04:52] LABS: Mean Corpuscular Volume 91 fL (80-100)
--- NOTE | 2023-02-05 06:10 | NUR ---
SHIFT SUMMARY: PT REMAINS HYPOTENSIVE WITH SBP 80'S AND MAP 59. LEVO STARTED AROUND 0430 AND IS NOW RUNNING AT 10 MCG/KG/MIN. PT COMMUNICATION IS BECOMING DIFFICULT; PT NOTED TO BE MUMMBLING MORE AND NOT BEING ABLE TO ARTICULATE CLEARLY. PT IS STILL RESPONSIVE TO VERBAL STIMULI AND ANSWERS MOST OF THE ORIENTING QUESTIONS. PT URINE OUTPUT LOW AT 150 MLS. BED LOWERED, CALL LIGHT IN REACH, WILL CONTINUE TO MONITOR UNTIL ONCOMING RN ARRIVES.
[2023-02-05 06:20] LABS: Albumin, Blood 2.2 g/dL (3.4-5.0)
[2023-02-05 07:50] LABS: Hematocrit 26.5 % (37.0-53.0)
[2023-02-05 08:59] LABS: Source, Urine Foley catheter
[2023-02-05 09:03] LABS: Appearance, Urine Clear (Clear); Bilirubin, Urine Neg (Neg); Blood, Urine 1+ (Neg); Color, Urine Yellow (P-Yellow); Glucose Qualitative, Urine Neg (Neg); Ketones, Urine 2+ (Neg); Leukocyte Esterase, Urine Neg (Neg); Nitrite, Urine Neg (Neg); Protein, Urine 3+ (Neg); Specific Gravity, Urine 1.015 (1.003-1.022); Urobilinogen, Urine NORM (Normal)
[2023-02-05 09:10] LABS: Bacteria Rare /hpf; Mucus Mod (0-Heavy); Red Blood Cells, Urine 0-2 /hpf (0-2); Squamous Epithelial Cells Rare /hpf (Few); White Blood Cells, Urine 0-2 /hpf (0-5)
[2023-02-05 12:15] LABS: Hematocrit 26.2 % (37.0-53.0); Hemoglobin 8.9 g/dL (13.5-17.5)
--- NOTE | 2023-02-05 12:24 | NUR ---
[place] of Care/Update: Care assumed at 0700hr. Patient very drowsy, but rouses to verbal stimuli. Patient having difficulty staying awake and speaking, but oriented x4. BP shows systolic in the 60's, HR stable at sinus rhythm in the 70's-80's. Patient continues to bleed aranza blood from fasciotomy site to lt leg. Levophed gtt infusing at 10mcg/min throughout peripheral IV (IV site wnl), Heparin gtt infusing per pharmacy. NOC shift RN reports several calls made to both Dr. Collins, and NOC hospitalist to report continued bleeding and VS. NOC RN also reports patient continues to refuse blood products r/t fear of receiving "COVID vaccinated" blood. NOC RN also reports plan for patient to receive lt BKA today. This RN titrated levophed up to 15 then 18, the 20mcg/min per continued hypotension (see flow sheet). This RN also placed call to Dr. Collins to report continued bleeding and current VS. Received orders to stop Heparin gtt, and consult Dr. Lacy to determine plan for BKA. paver operator spoke with Dr. Lacy, received orders to consult Dr. Diamond for lt BKA. paver operator then called Dr. Diamond to notify her of the consult. This RN also spoke to patient r/t continued bleeding and concern for if blood transfusion not received. Patient stated "OK, if I really need it". Call then placed to Dr. Coombs, reported current patient status, and asked to come to bedside to discuss blood transfusion. Dr. Coombs conveyed same concern for if blood transfusion not received, patient then consented to receiving blood. X1 unit PRBC's ordered, and consult for Dr. Dixon also placed. Dr. Dixon to bedside approx 0800hr. Received orders for x2L LR bolus, followed by maintenance fluids at 150ml/hr. Holding placement of Central line at that time and central vessels appeared very hypovolemic. Patient's BP has responded well to blood transfusion and fluids, systolics now 110-130. Levophed gtt titrated down to 10mcg/min. Left leg fasciotomy site continues to bleed, but appears significantly less than reported from NOC RN. Peripheral IV and powerglide remain patent and intact. Geophysical E Logger RN attempting PICC line at this time. Will continue to monitor.
--- NOTE | 2023-02-05 15:08 | NUR ---
Spiritual Care Visit. Pt. is resting. Spouse and grandson are present at bedside and welcome my visit. Rapport with spouse is re-established. Spouse encourages this manager cardiovascular to rouse the Pt. Pt. responds as I approach bedside. Pt. displays evidence of gratitude for the care he is receiving. Dr. Diamond arrives to assess the Pt. and change the Pts. dressing. This manager cardiovascular engaged in life review with the spouse during the doctor's assessment. After Dr. khanna, prayed with Pt. and family. Family displays evidence of relief and trust. Pt. and spouse verbalize gratitude for the spiritual care visit.
--- NOTE | 2023-02-05 15:16 | NUR ---
Dr. Diamond to bedside: Dr. Diamond to bedside at this time. Assisted Dr. Diamond with dressing change to lt leg fasciotomy sites (x2). Fasciotomy sites packed with wet leni, then covered with 4x4's, kerlex, and tegan-wrap. Dr. Diamond informed patient, family, and staff that a BKA surgery is not required at this time, and the leg remains too swollen to close the fasciotomy sites. Instructed to continue to monitor site, lower extremity, support vital signs. Keep patient NPO after 0000hr tonight, Dr. Diamond to re-assess the need for surgery tomorrow 02/06/23.
--- NOTE | 2023-02-05 18:50 | NUR ---
Shift Summary: See previous notes r/t patient status and plan of care. Patient's VS remain stable. Levophed gtt titrated down and placed on stand-by shortly before shift change, systolic remains in the 120's, MAP in the 60's. Continues on RA, no dyspnea/SOB. New dressing to lt leg remains C/D/I. Received orders for x2 additional PRBC's per Dr. Dixon, 2nd of those 2 units started just prior to shift change. Bedside report given to NOC RN.
--- NOTE | 2023-02-05 19:00 | NUR ---
ASSUMED CARE ASSUMED CARE OF PATIENT. AWAKE AND ALERT WHEN UPON RN ENTERING ROOM. ORIENTED AND COOPERATIVE WITH CARE. SPEECH IS SOFT. SLIGHTLY SLOWED VERBAL RESPONSE. CONTINUES WITH C/O LEFT LEG/FOOT PAIN. LLE DRSG D/I AT THIS TIME. DOPPLER PULSE NOTED TO RIGHT POSTERIOR TIBIAL ONLY AT THIS TIME. BILATERAL FEET ARE COOL TO TOUCH, BUT OFF-GOING RN STATES THEY ARE WARMER THAN BEFORE. LEFT FOOT HAS DRSG INTACT TO GREAT TOE AND TO POSTERIOR TIBIAL SITE. FOOT IS RED/PUPRLE. PT STATES FOOT IS NUMB. THIRD UNIT PRBC INFUSING AT THIS TIME. MONITOR SHOWS NSR, RATE 90s. BP STABLE. AFEBRILE. RA SATS STABLE. RESPIRATIONS EVEN AND UNLABORED, SHALLOW WHILE ASLEEP. PT DENIES SPB/DYSPNEA. DENIES NAUSEA. ELIZABETH PATENT AND DRAINING TO GRAVITY. SEE SHIFT ASSESSMENT FOR FULL ASSESSMENT.
[2023-02-06] VITALS (68 sets, daily range): BP systolic 95–177; BP diastolic 40–111
[2023-02-06 03:58] LABS: BASOPHILS ABSOLUTE AUTO 0.05 K/mm3 (0.00-0.23); BASOPHILS PERCENT AUTO 0 % (0-2); EOSINOPHILS ABSOLUTE AUTO 0.11 K/mm3 (0.00-0.68); EOSINOPHILS PERCENT AUTO 1 % (0-6); Hematocrit 24.6 % (37.0-53.0); Hemoglobin 8.5 g/dL (13.5-17.5); IMMATURE GRAN ABSOLUTE AUTO 0.07 K/mm3 (0.00-0.10); IMMATURE GRAN PERCENT AUTO 1 % (0-1); LYMPHOCYTES ABSOLUTE AUTO 1.34 K/mm3 (0.84-5.20); LYMPHOCYTES PERCENT AUTO 10 % (21-46); MONOCYTES ABSOLUTE AUTO 1.85 K/mm3 (0.16-1.47); MONOCYTES PERCENT AUTO 14 % (4-13); Mean Corpuscular HGB 29.5 pg (26.0-34.0); Mean Corpuscular HGB Conc 34.6 g/dL (31.5-36.5); Mean Platelet Volume 9.3 fL (9.1-12.4); NEUTROPHILS ABSOLUTE AUTO 9.88 K/mm3 (1.96-9.15); NEUTROPHILS PERCENT AUTO 74 % (41-73); Platelet Count 110 K/mm3 (150-400); RDW Coefficient Variation 15.4 % (11.7-14.2); RDW Standard Deviation 47.2 fL (35.1-46.3); Red Blood Cell Count 2.88 M/mm3 (4.30-5.90)
[2023-02-06 04:00] LABS: Mean Corpuscular Volume 85 fL (80-100)
[2023-02-06 04:14] LABS: Bun/Creatinine Ratio 20.9 (12.0-20.0); Calcium, Blood 8.1 mg/dL (8.5-10.1); Creatinine, Blood 1.39 mg/dL (0.60-1.20); Magnesium, Blood 1.8 mg/dL (1.6-2.4); Phosphorus, Blood 3.1 mg/dL (2.5-4.9); Potassium, Blood 4.5 mmol/L (3.5-5.5)
--- NOTE | 2023-02-06 06:23 | NUR ---
SHIFT SUMMARY NO ACUTE CHANGES. SLEPT WHEN UNDISTURBED. ROUSES EASILY TO VERBAL STIMULI. MEDICATED WITH DILAUDID 0.5MG IV X 1, DILAUDID 1MG IV X 1, AND OXYCODONE 10MG PO X 1 DOSE FOR CONTINUED C/O LLE PAIN. LEFT FOOT REMAINS NUMB. BILATERAL PT PULSES FOUND WITH DOPPLER- LEFT PT PULSE IS VERY FAINT. LLE DRSG IS D/I. VSS. RA SATS STABLE- OCCASIONAL SHORT PERIODS OF APNEA NOTED WHILE SLEEPING. RECEIVED ONE UNIT PRBC DURING SHIFT. LR INFUSING AT 150MLS/HR. ELIZABETH PATENT AND DRAINING TO GRAVITY. TOLERATING CLEAR LIQUIDS- PT HAS BEEN NPO SINCE MIDNO D/T POSSIBILITY OF GOING TO OR THIS AM. WILL REPORT TO ONCOMING RN WHEN AVAILABLE.
--- NOTE | 2023-02-06 07:00 | NUR ---
ASSUME CARE: I have assumed care of this patient.
--- NOTE | 2023-02-06 13:00 | NUR ---
PROVIDER UPDATE: Dr Coronado notified of pt's hypersension. No new orders. Will continue to monitor.
--- NOTE | 2023-02-06 13:19 | NUR ---
Spiritual Care Visit. Pt. is resting. Spouse and Grandson are present and welcome my visit. Family express hope that Pt. will have surgery this afternoon. Listen with empathy. Spouse verbalizes her appreciation for the care the Pt. is receiving. When i approch Pt. he respnds and displays evidence of awareness and engagement. Pt. also displays evidene of somnilence. [place] with Pt. Pt. verbalizes gratitude for the spiritual care visit.
--- NOTE | 2023-02-06 14:39 | NUR ---
Supportive visit this afternoon. Pt resting in bed upon arrival. Lots of family at bedside. Brief update of plan of care. Pt to go for surgery this afternoon. Offered therapeutic listening and validated concerns. Pt and family express appreciation and report no other concerns at this time. Pt and family agreeable for continued supportive visits. Palliative Care will remain available
[2023-02-06 16:05] LABS: Hematocrit 24.3 % (37.0-53.0); Hemoglobin 8.5 g/dL (13.5-17.5)
--- NOTE | 2023-02-06 16:20 | NUR ---
PT TO OR: on ICU bed and transport monitor with OR staff
--- NOTE | 2023-02-06 17:03 | NUR ---
02/06/23 1703 Ruba Ponce PT ON SCHEDULED ANTIBIOTICS AND RECIEVED PRIOR TO ARRIVAL TO OR.
--- NOTE | 2023-02-06 19:05 | NUR ---
SHIFT SUMMARY: Pt back from OR at 185. is currently at bedside. Pt responding to voice and MAE. Samaniego remains in place. No BM this shift. Dilaudid 0.5mg IV was given PRN for pain. PICC and power glide patent. Family at bedside and supportive for much of shift.
[2023-02-06 20:34] LABS: Hematocrit 23.8 % (37.0-53.0); Hemoglobin 8.1 g/dL (13.5-17.5)
--- NOTE | 2023-02-06 22:00 | NUR ---
ASSUMED CARE AT 1900 PT ARRIVED BACK FROM OR AT 1854. HE IS SLOWLY COMING OUT OF ANESTHESIA; ALERT TO VERBAL STIMULI; NEEDS TO BE REORIENTED BUT NOW KNOWS SELF AND FAMILY AT BEDSIDE; REPOSITIONING SELF IN BED; FORGETS LIMITATIONS RIGHT NOW; VERBAL REMINDERS HELPFUL FROM RN AND FAMILY. HE CAME BACK ON 10L NRB AND WAS QUICKLY ABLE TO TITRATE DOWN TO NC FOLLOWED BY RA NOW; SPO2 >98% ON RA. AFEBRILE. HR 70'S. SBP 120. MAP 65-75. ELIZABETH IN PLACE AND DRAINING TO GRAVITY. LLE WRAPPED FROM OR; INSTRUCTED TO NOT REMOVE DRESSING; TANA DRAIN IN PLACE. SEE SHIFT ASSESSMENT FOR FULL ASSESSMENT. PT TY AND TWO OTHER FAMILY MEMBERS AT BEDSIDE AFTER SURGERY. THEY WERE APPROPROPRIATE AND LEFT AT THE END OF VISITING HOURS. DR HERNANDEZ AT BEDSIDE AND ORDERED H&H FOR NOW.
[2023-02-07] VITALS (74 sets, daily range): BP systolic 80–176; BP diastolic 34–96
--- NOTE | 2023-02-07 01:19 | NUR ---
UPDATE PT RECOVERING FROM ANESTHESIA WELL. HE IS NOW A/O X4 AND ABLE TO MAKE HIS NEEDS KNOWN. RECIEVING PAIN MEDS BOTH PO AND IV. LR INFUSING AT 75ML/HR. TOLERATING PO FLUIDS AND JELLO WELL. WHILE SLEEPING PLACED ON 2L NC. WCTM.
[2023-02-07 05:01] LABS: Hematocrit 21.4 % (37.0-53.0); Hemoglobin 7.4 g/dL (13.5-17.5); Mean Corpuscular HGB 30.1 pg (26.0-34.0); Mean Corpuscular HGB Conc 34.6 g/dL (31.5-36.5); Mean Corpuscular Volume 87 fL (80-100); Mean Platelet Volume 9.4 fL (9.1-12.4); Platelet Count 107 K/mm3 (150-400); RDW Coefficient Variation 15.4 % (11.7-14.2); RDW Standard Deviation 48.1 fL (35.1-46.3); Red Blood Cell Count 2.46 M/mm3 (4.30-5.90); White Blood Cell Count 10.74 K/mm3 (4.00-11.30)
[2023-02-07 05:22] LABS: Anion Gap Unable to Calculate mmol/L (6-16); Blood Urea Nitrogen 19 mg/dL (8-24); CO2, Blood 29 mmol/L (21-32); Calcium, Blood 7.3 mg/dL (8.5-10.1); Chloride, Blood 110 mmol/L (98-108); Creatinine, Blood 0.86 mg/dL (0.60-1.20); Glomerular Filtration Rate 86 (60-); Glucose, Blood 117 mg/dL (70-99); Potassium, Blood 4.1 mmol/L (3.5-5.5); Sodium, Blood 136 mmol/L (136-145)
--- NOTE | 2023-02-07 06:02 | NUR ---
END OF SHIFT SUMMARY NO ACUTE EVENTS OVERNIGHT. PT IS A/O X4 AND ABLE TO MAKE HIS NEEDS KNOWN. PAIN CONTROLLED WITH DILAUDID IV AND OXYCODONE PO FOR LLE PAIN WHERE AMPUTATION WAS. MAX TEMP 99.9. 2L NC NEEDED WHILE SLEEPING TO MAINTAIN SPO2 >95%; WHILE AWAKE, RA APPROPRIATE. HR 70'S, NSR. SBP 100-130; DBP 40-50'S; MAP'S IN THE LOW 60'S AFTER PAIN MEDICATION AND WHILE SLEEPING BUT WHEN STIMULATED MAP'S IN THE HIGH 60'S AND LOW 70'S. ELIZABETH IN PLACE WITH 950ML URINE OUTPUT. RT GROIN SITE SHOWS NO SIGNS OF NEW BLEEDING OR HEMATOMA; LLE BANDAGES CLEAN AND INTACT. LR INFUSING AT 75ML/HR. WILL REPORT TO AM RN WHEN AVAILABLE.
--- NOTE | 2023-02-07 08:15 | NUR ---
INITIAL ASSESSMENT PATIENT ALERT AND ORIENTED X 4, PLEASANT AND COOPERATIVE. PATIENT FORGETFUL AT TIMES WHEN ON PAIN MEDS. PATIENT HAS TEMP OF 100.8 DEGREES FAHRENHEIT. L BKA NOTED; DRESSING C/D/I. PATIENT ABLE TO MOVE ALL EXTREMITIES. PRN DILAUDID GIVEN FOR COMPLAINTS OF PAIN TO L STUMP. LUNG SOUNDS CLEAR. BREATHING SHALLOW. PATIENT ON 2 L NC WITH SLEEP AND WITH PAIN MEDICATIONS. PATIENT NORMALLY RA AT HOME. NONPITTING EDEMA NOTED TO TAE. PATIENT IN SR, HR 70S TO 80S. SBP 130S TO 140S. DBP 40S TO 50S. GI WNL. ELIZABETH IN PLACE DRAINING YELLOW COLORED URINE; MILD ODOR PRESENT. SKIN PALE. R GROIN BRUISED. NO BLEEDING OR HEMATOMA NOTED. SITE SOFT TO PALPATION. LR INFUSING AT 75 MLS/ HOUR. BLOOD SUGAR 119. PATIENT DECLINED BEDBATH. BED LOW, CALL LIGHT IN REACH. WILL CONTINUE TO MONITOR PATIENT FREQUENTLY THROUGHOUT SHIFT.
--- NOTE | 2023-02-07 11:52 | NUR ---
TEMP OF 100.5 DEGREES FAHRENHEIT. HR IN THE 80S. SBP 90S TO 130S. DBP 30S TO 70S. DR. GAITAN AWARE OF BP AND MAPS. BLOOD SUGAR 145; NO COVERAGE INDICATED. PRN DILAUDID GIVEN FOR COMPLAINTS OF L BKA PAIN. BED LOW, CALL LIGHT IN REACH. WILL CONTINUE TO MONITOR.
[2023-02-07 12:27] LABS: Hematocrit 19.7 % (37.0-53.0); Hemoglobin 6.5 g/dL (13.5-17.5)
--- NOTE | 2023-02-07 16:30 | NUR ---
PATIENT HAS TEMP OF 100.9 DEGREES FAHRENHEIT. HR IN THE 70S. SBP IN THE 150S. BLOOD SUGAR 114. PATIENT DEPRESSED AND LETHARGIC.
--- NOTE | 2023-02-07 18:57 | NUR ---
SHIFT SUMMARY PATIENT REMAINED MOSTLY ALERT AND ORIENTED. PATIENT HAD PERIODS OF CONFUSION WHICH APPEARS TO BE FROM PAIN MEDICATIONS AND WHEN WAKING UP FROM NAPS. PATIENT LETHARGIC ALL SHIFT. PATIENT HAD TMAX OF 100.9 DEGREES FAHRENHEIT. PATIENT GIVEN PRN DILAUDID AND OXY FOR COMPLAINTS OF PAIN IN L STUMP AND CHRONIC BACK PAIN. PATIENT ON 2 L NC TO KEEP SATS 90% AND GREATER WHILE SLEEPING AND WHILE ON PAIN MEDS. PATIENT REMAINED SR, HR 70S TO 90S. SBP 90S TO 160S. MAPS 30S TO 60S. SCD TO R CALF. PATIENT HAD OK APPETITE. NO BM THIS SHIFT. 800 MLS OF URINE OUT FROM ELIZABETH. ELIZABETH REMOVED AND ATTENDS PLACED. NO CHANGES TO SKIN NOTED. DRESSING TO L BKA CHANGED BY DR. HERNANDEZ THIS AM. PATIENT REPOSITIONED T/O SHIFT. NO CHANGES TO R GROIN SITE. LR DC'D THIS SHIFT. 1 L NS BOLUS GIVEN TO SEE IF WOULD HELP INCREASE DBP. NS TKO AT THIS TIME. 1 UNIT PRBCS GIVEN THIS SHIFT. BLOOD SUGARS RANGED FROM 114 TO 145; NO COVERAGE INDICATED THIS SHIFT. FAMILY IN TO VISIT TODAY. BED LOW, CALL LIGHT IN REACH. REPORT WILL BE GIVEN TO ASSUMING DRYWALL WORKER NURSE SHORTLY.
[2023-02-07 20:59] LABS: Hematocrit 23.6 % (37.0-53.0); Hemoglobin 7.8 g/dL (13.5-17.5)
--- NOTE | 2023-02-07 22:29 | NUR ---
ASSUMED CARE AT 1900 PT LAYING IN BED SLEEPING AT SHIFT CHANGE BUT SOON AFTER WAS AWAKE AND WANTING TO TAKE DENTURES OUT AND CLEAN THEM. HE IS A/O X4 AND ABLE TO MAKE HIS NEEDS KNOWN, SLIGHTLY CONFUSED AFTER FIRST WAKING BUT CAN BE REDIRECTED AND REORIENTED EASILY. TEMP 99.4. SPO2 >93% ON 2L NC. HR 80-90'S. SBP 130-150'S; DBP 40'S; MAP 65-75. ATTENDS IN PLACE; URINAL AT BEDSIDE. PAIN BEING MANAGED BY PO OXYCODONE AND IV DILAUDID FOR LLE. DRESSING TO LLE C/D/I. SALINE LOCKED. SEE SHIFT ASSESSMENT FOR FULL ASSESSMENT.
[2023-02-08] VITALS (29 sets, daily range): BP systolic 129–190; BP diastolic 39–117
--- NOTE | 2023-02-08 06:23 | NUR ---
END OF SHIFT SUMMARY NO ACUTE EVENTS OVERNIGHT. HE WAS ABLE TO SLEEP MOST OF THE NIGHT BUT WHEN HE WOKE UP STATED THAT HE WAS STILL "EXHAUSTED". HE CONT TO BE A/O X4. PAIN MEDS OXYCODONE GIVEN TWICE AND DILAUDID GIVEN ONCE. CONT TO BE ON 2L NC T/O THE NIGHT. HR 80-90'S. SBP 140-170'S; DBP 50'S. NO BM THIS SHIFT. ATTENDS IN PLACE AND URINAL AT BEDSIDE; COULDN'T MAKE IT TO THE URINAL TWICE D/T DEXTERITY BUT WAS SUCCESSFUL TWICE AFTER THAT USING THE URINAL. NO CHANGES TO DRESSING TO LLE. WILL REPORT TO AM RN WHEN AVAILABLE.
--- NOTE | 2023-02-08 07:00 | NUR ---
ASSUMPTION OF CARE: THIS SOLID GLASS ROD DOWEL MACHINE OPERATOR ASSUMED CARE OF PATIENT. SUCTION AND AMBU BAGS ARE PRESENT AT BEDSIDE.
[2023-02-08 07:55] LABS: Hemoglobin 8.3 g/dL (13.5-17.5); Mean Corpuscular HGB 29.5 pg (26.0-34.0); Mean Corpuscular HGB Conc 33.2 g/dL (31.5-36.5); Mean Corpuscular Volume 89 fL (80-100); Mean Platelet Volume 8.9 fL (9.1-12.4); Platelet Count 107 K/mm3 (150-400); RDW Coefficient Variation 16.4 % (11.7-14.2); RDW Standard Deviation 51.4 fL (35.1-46.3); Red Blood Cell Count 2.81 M/mm3 (4.30-5.90); White Blood Cell Count 10.59 K/mm3 (4.00-11.30)
--- NOTE | 2023-02-08 09:00 | NUR ---
PROVIDER UPDATE: Pt's BP discussed with Dr. Coombs. No new orders, will continue to monitor.
--- NOTE | 2023-02-08 11:30 | NUR ---
PROVIDER UPDATE: Continued hypertension discussed with Dr Coronado. Home dose of lisinopril ordered.
--- NOTE | 2023-02-08 14:53 | NUR ---
PROVIDER NOTE: HOSPITALIST WAS CALLED AND NOTIFIED OF PATIENTS TEMPERATURE. PHONE ORDERS FOR BLOOD CULTURES.
--- NOTE | 2023-02-08 16:23 | NUR ---
SHIFT/TRANSFER SUMMERY: PATIENT WAS TRANSFERED FROM ICU TO SURGICAL FLOOR TODAY. NEURO: ALERT AND ORIENTED X4. PAIN WAS MANAGED THROUGHOUT THE SHIFT WITH 10MG OF OXYCODONE Q4 AND 0.5MG OF DILAUDID FOR BREAKTHROUGH PAIN. CARDIAC: PATIENT IS IN NORMAL SINUS RHYTHYM IN THE 80'S. PATIENT WAS HYPERTENSIVE. HOME DOSE OF LISINOPRIL WAS STARTED. RESPIRATORY: ALL LUNG RASHID WERE CLEAN UPON AUSCULATION. PATIENT REMAINED ON 2L OF OXYGEN THROUGHT THE SHIFT DURING SLEEPING AND FOR DROWSYNESS AFTER PAIN MEDICATION. GI/: PATIENT WAS STARTED ON DOCUSATE FOR POSSIBLE CONSTIPATION SINCE LAST BM WAS DOCUMENTED ON 02-06-23. A CONDOM CATHETER WAS PALCED TO ENCOURAGE REST DUE TO URINARY FREQUENCY. ID: PATIENT HAS BEEN RECIEVING ANCEF AND DEVELOPED A TEMPERATURE OF 101.0 F DURING THE SHIFT. DR MARTINEZ WAS CALLED AND ORDERES WERE TAKED TO COLLECT BLOOD CULTURES. 650MG OF TYLENOL WAS GIVEN FOR MANAGEMENT OF THIS TEMPERATURE. AFTER REASSESSING HIS TEMP WAS 100.4.
[2023-02-09 05:26] VITALS: BP 180/55
[2023-02-09 07:31] VITALS: BP 199/76
--- NOTE | 2023-02-09 08:18 | NUR ---
SUMMARY PT TAKING PO PAIN MEDS.SLEPT OFF AND ON TONIGHT. NO ACUTE CHANGES.
[2023-02-09 09:18] LABS: Hematocrit 27.8 % (37.0-53.0); Hemoglobin 9.2 g/dL (13.5-17.5)
[2023-02-09 14:42] VITALS: BP 188/67
--- NOTE | 2023-02-09 17:55 | NUR ---
SHIFT SUMMARY PT A&OX4. PT TOOK FREQUENT NAPS AND WAS EASILY AROUSABLE. PT HAD MANY VISITORS THROUGHOUT THE SHIFT. PT ABLE TO MOVE IN BED INDEPENDENTLY AND VERBALLY STATES WISHES TO "MOVE MORE". PT HAS A LARGE AREA OF SCATTERED BRUISING AROUND HIS GROIN. PT USES URINAL INDEPENDENTLY. PT SITTING IN BED WITH CALL LIGHT WITHIN REACH. WILL REPORT TO NOC NURSE.
[2023-02-09 20:18] VITALS: BP 165/66
[2023-02-10 04:58] VITALS: BP 167/56
--- NOTE | 2023-02-10 05:29 | NUR ---
SHIFT SUMMARY POD#4 LEFT BKA NO ACUTE CHANGES NOTED THROUGH THE NIGHT, VSS, ON RA, PAIN MANAGED PER EMAR, PT REPORTS AN INCREASE IN PHANTOM PAINS, DRSG REMAINS C/D/I, STUMP ELEVATED ON A PILLOW, TOLERATING PO INTAKE, VOIDING WNL, CALLS FOR ASSISTANCE PRN, HAS BEEN ABLE TO REST QUIETLY THROUGH THE NIGHT, CALL LIGHT IN REACH, WCTM & REPORT TO ONCOMING RN.
--- NOTE | 2023-02-10 07:19 | NUR ---
ASSUMED CARE OF PT FROM NOC SHIFT. PT AWAKE IN BED, SPEAKING ON PERSONAL PHONE. A&0X4. CALL LIGHT WITHIN REACH.
[2023-02-10 07:37] VITALS: BP 171/60
--- NOTE | 2023-02-10 10:15 | NUR ---
SPIRITUAL CARE, SOFIA RAMIREZ IN TO CONVERSE WITH PT
--- NOTE | 2023-02-10 10:48 | NUR ---
ADAMS IN TO VISIT WITH PT. VERY WELL RECEIVED.
--- NOTE | 2023-02-10 11:40 | NUR ---
Spiritual Care Visit. Pt. is sitting up in a chair and welcomes my visit. Pt. is pleasant and rapport is quickly re-established. Pt. verbalized having expereinced some significant phantom pain overnight. Listened with empathy and a caring presence. Facilitated a lengthy life review which was interrupted for a short time by a visit from Abena the Therapy dog. Pt. displayed evidence of great hope in what is next. Discussed matters of nadia and personal belief. Prayed with Pt. Pt. verbalized gratitude for the spiritual care visit.
[2023-02-10 14:23] VITALS: BP 174/65
--- NOTE | 2023-02-10 16:38 | NUR ---
SHIFT SUMMARY PT A&OX4. POD4 BELOW THE KNEE AMPUTATION. DRESSING FREE FROM EXUDATE/ REDNESS. PT WORKED WITH PT TO PIVOT TO CHAIR. PT STRENGTH IS INCREASING, 1 PERSON ASSIST WITH TRANSFERS. PT USES URINAL APPROPRIATELY. PICC LINE HAS SCANT AMOUNT OF FLUID AT INSERTEION SITE UNDER DRESSING, INDICATED TO BE CHANGED TOMORROW. PT REFERRED TO PENITENTIARY FACILITY, AWAITING PLACEMENT, PT STATES HE PREFERS [facility]. PT STATED CONCERNS OF CONSTIPATION, MEDICATED PER EMR. PT HAS CHRONIC PAIN DUE TO HIS BACK, PT STATED HIS PAIN IS BEST CONTROLLED WHEN GIVING PAIN MEDS Q4 AROUND THE CLOCK. PT HAD A LONG CHAT WITH SPIRITUAL CARE. PT STATED HE LOVED THE VISIT FROM THERAPY DEANA LAMAS. PT IS RESTING COMFORTABLY IN BED. WILL REPORT TO NOC SHIFT.
[2023-02-10 19:32] VITALS: BP 145/48
--- NOTE | 2023-02-11 04:15 | NUR ---
SHIFT SUMMARY NO ACUTE CHANGES TO REPORT OVERNIGHT, POD 4 LEFT BKA. STUMP SOCK IS IN PLACE, CLEAN AND DRY. PT MEDICATED FOR PAIN ABOUT Q4HR. PT SLEEPS MOST OF THE NIGHT. REPORTS N/T IN LOWER EXT AT BASELINE. DENES SOB, RESP E/U ON RA. TOLERATING PO INTAKE AND VOIDING. BED IN LOWEST POSITION, CALL LIGHT WITHIN REACH.
[2023-02-11 04:27] VITALS: BP 144/53
[2023-02-11 07:36] VITALS: BP 159/68
--- NOTE | 2023-02-11 14:46 | NUR ---
SHIFT SUMMARY: POD 5 LEFT BKA PATIENT IS A&OX4. VS ARE WNL AND IS ON RA. PAIN IS MANAGED WITH PO OXY. LEFT STUMP HAS STUMP SOCK IN PLACE AND IS C/D/I. HE IS A SBA WITH FWW AND GAIT BELT TO PIVIOT FROM [id number]. PATIENT IS TOLERATING PO INTAKE AND IS VOIDING WELL PASSING GAS. HE HAS BEEN GIVEN BOWEL CARE WELL TO PROMOTE GI MOTILITY. CALLS APPROPRIATELY. IS AT BEDSIDE. HE IS LAYING IN BED WITH CALL LIGHT IN REACH. THE PLAN IS AWAITING FOR INSURANCE APPROVAL FOR REHAB [facility].
[2023-02-11 14:49] VITALS: BP 164/60
--- NOTE | 2023-02-11 18:18 | NUR ---
Spiritual Care Visit Pt. is awake in bed and welcomes my visit. Pt. had many visitors during the day and displayed evidence of being tired. This surgical scrub technologist purposed to keep our visit short. Facilitated a short life review recapping the day and Pt. verbalized his anticipated therapy plans in [place]. Pt. is pleasant and rapport is re-established. Prayed with Pt. Pt. verblaized gratitude for the spiritual care visit and requested this surgical scrub technologist to return.
[2023-02-11 19:32] VITALS: BP 148/54
--- NOTE | 2023-02-12 03:01 | NUR ---
PT OOB WITHOUT ASSISTANCE PT ATTEMPTED TO GET OOB OF BED WITHOUT USING CALL LIGHT FOR ASSISTANCE. PT WAS HEARD CALLING OUT "HELP". STAFF RUSHED TO PT ROOM TO FIND HIM WITH HIS HIP RESTING AGANIST THE EDGE OF BED AND HIS TORSO LAYING ACROSS SEAT OF A BEDSIDE CHAIR. PT RIGHT FOOT FIRMLY PLANTED ON FLOOR, WITH HIS CANE RESTING NEAR THE CHAIR. PT STATES AND CONFIRMS THAT HE DID NOT FALL. HE STATES THAT HE WAS ATTEMPTING TO GET OOB TO USE THE BATHROOM. PT WAS INCONTINENT OF URINE, WITH URINE ON THE FLOOR AND HIS GOWN. ASSISTED PT BACK TO BED. STUMP SOCK ON LEFT LEG SATURATED WITH URINE. STUMP SOCK AND MAYUR WRAP CHANGED BY PATTERN WEAVER, WITH THE ASSISTANCE OF THIS RN AND ONE OTHER RN. BED ALARM NOW IN PLACE. PT GIVEN A FRESH GOWN AND ASSISTED HIM WITH URINAL AND BEDPAN.
[2023-02-12 04:31] VITALS: BP 162/57
--- NOTE | 2023-02-12 04:53 | NUR ---
SHIFT SUMMARY PT HAS SLEPT MOST OF THE NIGHT. PT GOT OOB WITHOUT NURSE ASSISTANCE X1 THIS SHIFT, PLEASE PRIOR NURSE'S NOTE. BED ALARM NOW IN PLACE FOR SAFETY. NEW STUMP SOCK IN PLACE TO LBKA AFTER IT BECAME SOILED WITH URINE. PT MEDICATED FOR PAIN PER EMAR ORDERS. PT REQUESTS AROUND THE CLOCK Q 4HR WHEN AWAKE. PT STILL AWAITING SNF DC. BED IN LOWEST POSITION, CALL LIGHT WITHIN REACH.
[2023-02-12 07:13] VITALS: BP 150/50
[2023-02-12 07:15] VITALS: BP 126/74
--- NOTE | 2023-02-12 07:59 | NUR ---
PT DECLINES BLOOD SUGAR CHECK. STATES LAST a1C WAS NORMAL AND THAT HE DOESNT USE INSULIN
--- NOTE | 2023-02-12 17:14 | NUR ---
PT REPORTS CHRONIC BACK PAIN AND SOME PAIN TO LEFT BKA SITE. DRESSING CLEAN, DRY AND INTACT TO LEFT STUMP. PT ANTICIPATING POSSIBLE DISCHARGE TO REHAB TOMORROW. PT REPORTS SLEEPY AND TIRED TODAY, DOZING BETWEEN PAIN MEDICATION.
[2023-02-12 17:36] VITALS: BP 150/55
[2023-02-12 20:03] VITALS: BP 158/57
[2023-02-13 04:00] VITALS: BP 143/49
--- NOTE | 2023-02-13 05:24 | NUR ---
SHIFT SUMMARY: A&0X4. VERY PLEASANT T/O THE NIGHT. PODx 7 NOW FROM L BKA. PAIN WELL MANAGED WITH PO MEDICATION PER EMAR ORDERS. TOLERATING DIET. STUMP SOCK REMAINS IN PLACE AND IS C/D/I AT THIS TIME. PT REPORTS CONTINUED "PHANTOM" PAIN IN L EXTREMITY. PT APPEARED SLIGHTLY ANXIOUS THIS SHIFT WHEN DISCUSSING DC PLANS. CONTINUES TO DECLINE BLOOD SUGAR READINGS AND INSULIN AT THIS TIME, EDUCATED ON BOTH. RESTING AT THIS TIME WITH CALL LIGHT IN REACH. WILL GIVE REPORT TO DAY TIME RN.
[2023-02-13 07:14] VITALS: BP 152/62
[2023-02-13] MEDS ORDERED: ACET325 PO (14:52)
[2023-02-13] MEDS ORDERED: DOCUZEN 8.6-501 EACH PO (14:53)
[2023-02-13] MEDS ORDERED: INSULIN GL100 UNIT/4 SC (14:55)
[2023-02-13] MEDS ORDERED: OXAYDO5 M1 PO (14:58)
--- NOTE | 2023-02-13 15:50 | NUR ---
1545 report called to sona at [facility]..pt discharged via non emergency transport in wheelchair. pt in agreement with plan to discharge and travel to [facility]. left stump dressing clean, dry and intact. pt reports his chronic back pain is at 6-8/10 which is his baseline. reports some pain and phantom pain to left stump. marv po food and fluids without nausea. pt reports passing large amounts of flatus and no abd pain. voiding clear yellow urine. pt oob with walker, gait belt and 2 person assist
== END 2023-02-13 19:36 | disposition home or self-care (01) | DRG 270 ==
LOC: MHTC 09:01 → ICUW 13:28 → MHTC 19:40 → SURS 19:41 → ICUW 19:41 → SURS 02-08 16:24
PROVIDERS: Family Medicine; Internal Medicine; Internal Medicine Critical Care Medicine; Orthopaedic Surgery; Radiology Diagnostic Radiology; ADMIT Internal Medicine
PROC: 04CL3ZZ Extirpation of Matter from Left Femoral Artery, Percutaneous Approach (ICD-10-PCS; principal; 2023-02-03)
PROC: 04CN3ZZ Extirpation of Matter from Left Popliteal Artery, Percutaneous Approach (ICD-10-PCS; 2023-02-03)
PROC: 04CU3ZZ Extirpation of Matter from Left Peroneal Artery, Percutaneous Approach (ICD-10-PCS; 2023-02-03)
PROC: 3E03317 Introduction of Other Thrombolytic into Peripheral Vein, Percutaneous Approach (ICD-10-PCS; 2023-02-03)
PROC: B41DYZZ Fluoroscopy of Aorta and Bilateral Lower Extremity Arteries using Other Contrast (ICD-10-PCS; 2023-02-03)
PROC: B44HZZZ Ultrasonography of Bilateral Lower Extremity Arteries (ICD-10-PCS; 2023-02-03)
PROC: 047U3ZZ Dilation of Left Peroneal Artery, Percutaneous Approach (ICD-10-PCS; 2023-02-04)
PROC: 047N3ZZ Dilation of Left Popliteal Artery, Percutaneous Approach (ICD-10-PCS; 2023-02-04)
PROC: 3E03317 Introduction of Other Thrombolytic into Peripheral Vein, Percutaneous Approach (ICD-10-PCS; 2023-02-04)
PROC: 047S3ZZ Dilation of Left Posterior Tibial Artery, Percutaneous Approach (ICD-10-PCS; 2023-02-04)
PROC: 0KNT0ZZ Release Left Lower Leg Muscle, Open Approach (ICD-10-PCS; 2023-02-04)
PROC: 30233N1 Transfusion of Nonautologous Red Blood Cells into Peripheral Vein, Percutaneous Approach (ICD-10-PCS; 2023-02-04)
PROC: 3E033XZ Introduction of Vasopressor into Peripheral Vein, Percutaneous Approach (ICD-10-PCS; 2023-02-05)
PROC: 0Y6J0Z1 Detachment at Left Lower Leg, High, Open Approach (ICD-10-PCS; 2023-02-06)
DX: I70.262 Atherosclerosis of native arteries of extremities with gangrene, left leg (principal); T81.19XA Other postprocedural shock, initial encounter; M79.A22 Nontraumatic compartment syndrome of left lower extremity; D62 Acute posthemorrhagic anemia; N17.9 Acute kidney failure, unspecified; F05 Delirium due to known physiological condition; L03.116 Cellulitis of left lower limb; E87.1 Hypo-osmolality and hyponatremia; I75.022 Atheroembolism of left lower extremity; Z66 Do not resuscitate; E11.52 Type 2 diabetes mellitus with diabetic peripheral angiopathy with gangrene; I25.10 Atherosclerotic heart disease of native coronary artery without angina pectoris; E03.9 Hypothyroidism, unspecified; N18.30 Chronic kidney disease, stage 3 unspecified; M79.81 Nontraumatic hematoma of soft tissue; M54.9 Dorsalgia, unspecified; G89.29 Other chronic pain; I72.4 Aneurysm of artery of lower extremity; E11.65 Type 2 diabetes mellitus with hyperglycemia; E11.40 Type 2 diabetes mellitus with diabetic neuropathy, unspecified; J44.9 Chronic obstructive pulmonary disease, unspecified; E78.5 Hyperlipidemia, unspecified; E11.22 Type 2 diabetes mellitus with diabetic chronic kidney disease; I12.9 Hypertensive chronic kidney disease with stage 1 through stage 4 chronic kidney disease, or unspecified chronic kidney disease; Z96.611 Presence of right artificial shoulder joint; Z96.643 Presence of artificial hip joint, bilateral; Z20.822 Contact with and (suspected) exposure to COVID-19; Z89.421 Acquired absence of other right toe(s); Z79.51 Long term (current) use of inhaled steroids; Z88.1 Allergy status to other antibiotic agents; Z88.0 Allergy status to penicillin; Z91.09 Other allergy status, other than to drugs and biological substances; Z98.890 Other specified postprocedural states; Z90.49 Acquired absence of other specified parts of digestive tract; Z95.1 Presence of aortocoronary bypass graft; Z79.4 Long term (current) use of insulin; Z88.2 Allergy status to sulfonamides; Z88.8 Allergy status to other drugs, medicaments and biological substances; I25.2 Old myocardial infarction; Z79.82 Long term (current) use of aspirin; Z79.891 Long term (current) use of opiate analgesic; Z79.899 Other long term (current) drug therapy; Z86.16 Personal history of COVID-19; Z79.811 Long term (current) use of aromatase inhibitors; Z88.5 Allergy status to narcotic agent
CPT/HCPCS: 36415; 36430; 36569; 37184; 37185; 37211; 37214; 37224; 37229; 37232; 51702; 75625; 75716; 75774; 76937; 80048; 81001; 82040; 82330; 82533; 82947; 83735; 84100; 84443; 85014; 85018; 85025; 85027; 85347; 85384; 85520; 86850; 86900; 86901; 86923; 87040; 88307; 93005; 93010; 94760; 94762; 96361; 96365; 96375; 96376; 97110; 97112; 97162; 97166; 97530; 97535; 99152; 99153; A9270; C1724; C1725; C1751; C1757; C1760; C1769; C1887; C1894; C8929; G0378; J0360; J0690; J1170; J1644; J1815; J2250; J2370; J2405; J2704; J2765; J2997; J3010; J7030; J7040; J7050; J7060; J7120; P9016; Q9957; Q9967

== ENCOUNTER 2023-02-27 15:48 | Emergency (ER) | payer OTHER ==
[~2023-02-27] VITALS: Ht 172.7 cm; Wt 79.4 kg
[~2023-02-27 15:48] MED LIST changes: +ACET325 PO; +ALPHA LIPOIC ACID; +COENZYME Q10200 MG PO; +Chromium Pico400 MCG; +DIAZ5 PO; +DOCUZEN 8.6-501 EACH PO; +Grape Seed50 M1; +INSULIN GL100 UNIT/4 SC; +LEVSOD112 PO; +LINE600 PO; +ONELAX FIBER T368 GM; +OXAYDO5 M1 PO; +OXYCODONE PO; +RED YEAST RICE; +SALMON OIL PO; +TOCO1000 PO; +VERA240ER PO; +Ventolin5 MG/1 ML INH; +[UNRECOGNIZED DRUG - OTHER]; +[UNRECOGNIZED DRUG - OTHER]; +[UNRECOGNIZED DRUG - OTHER] PO
[2023-02-27 16:40] LABS: BASOPHILS ABSOLUTE AUTO 0.09 K/mm3 (0.00-0.23); BASOPHILS PERCENT AUTO 1 % (0-2); EOSINOPHILS ABSOLUTE AUTO 0.33 K/mm3 (0.00-0.68); EOSINOPHILS PERCENT AUTO 4 % (0-6); Hematocrit 38.1 % (37.0-53.0); Hemoglobin 12.5 g/dL (13.5-17.5); IMMATURE GRAN ABSOLUTE AUTO 0.04 K/mm3 (0.00-0.10); IMMATURE GRAN PERCENT AUTO 0 % (0-1); LYMPHOCYTES ABSOLUTE AUTO 1.52 K/mm3 (0.84-5.20); LYMPHOCYTES PERCENT AUTO 16 % (21-46); MONOCYTES ABSOLUTE AUTO 1.03 K/mm3 (0.16-1.47); MONOCYTES PERCENT AUTO 11 % (4-13); Mean Corpuscular HGB 29.1 pg (26.0-34.0); Mean Corpuscular HGB Conc 32.8 g/dL (31.5-36.5); Mean Corpuscular Volume 89 fL (80-100); NEUTROPHILS PERCENT AUTO 68 % (41-73); White Blood Cell Count 9.51 K/mm3 (4.00-11.30)
[2023-02-27 16:55] LABS: Albumin, Blood 2.8 g/dL (3.4-5.0); Albumin/Globulin Ratio 0.7 (0.8-1.8); Bilirubin, Total 0.5 mg/dL (0.1-1.0); Bun/Creatinine Ratio 22.5 (12.0-20.0); Calcium, Blood 9.1 mg/dL (8.5-10.1); Creatinine, Blood 0.85 mg/dL (0.60-1.20); Globulin, Blood 4.2 g/dL (2.2-4.0); Potassium, Blood 5.9 mmol/L (3.5-5.5)
[2023-02-27 17:02] LABS: Mean Platelet Volume 9.3 fL (9.1-12.4); Platelet Count 420 K/mm3 (150-400)
[2023-02-27] MEDS ORDERED: ATEN25 PO (20:17)
[2023-02-27] MEDS ORDERED: Vibramycin100 MG PO (21:00)
[2023-02-27 21:40] VITALS: BP 114/60
== END 2023-02-27 21:55 | disposition home or self-care (01) ==
LOC: ER 15:48
PROVIDERS: Physician Assistant
DX: T87.81 Dehiscence of amputation stump (principal); Z88.6 Allergy status to analgesic agent; Z88.0 Allergy status to penicillin; Z88.2 Allergy status to sulfonamides; Z88.8 Allergy status to other drugs, medicaments and biological substances; Z88.1 Allergy status to other antibiotic agents; Z88.5 Allergy status to narcotic agent; Z79.899 Other long term (current) drug therapy
CPT/HCPCS: 80053; 85025; 96374; 99283-25; A9270; J0690

== ENCOUNTER → 2023-11-18 | Outpatient (CLI) | payer OTHER ==
[~2023-11-18] MED LIST changes: +Vibramycin100 MG PO
[2023-11-18 19:38] LABS: Ferritin, Serum 47 ng/mL (26-388); Iron Serum 174 ug/dL (65-175); Percent Saturation 43.5 % (20.0-50.0); Prolactin 12.3 ng/mL (2.5-17.4); Total Iron Binding Capacity 400 ug/dL (250-450)
[2023-11-18 20:09] LABS: Luteinizing Hormone <0.20 mIU/ml (1.2-10.6)
[2023-11-23 22:44] LABS: TESTOSTERONE, FREE BY DIALYSIS 22.8 pg/mL (47.0-244.0); TESTOSTERONE, TOTAL MASS SPEC 274.6 ng/dL (300.0-720.0)
== END ==
LOC: LAB SHORT 18:01 → LAB 18:01
PROVIDERS: Student in an Organized Health Care Education/Training Program
DX: Z12.5 Encounter for screening for malignant neoplasm of prostate (principal); E29.1 Testicular hypofunction
CPT/HCPCS: 82728; 83001; 83002; 83540; 83550; 84146; 84402; 84403; 84443; G0103

== ENCOUNTER → 2024-02-22 | Outpatient (CLI) | payer OTHER ==
[~2024-02-22] MED LIST changes: +CEPH500 PO; +DIAZEPAM5 M2 PO; -ONELAX FIBER T368 GM; +ONELAX FIBER T368 GM PO; +SILVER SULFADIA2011 TOP
== END ==
LOC: LAB SHORT 14:00 → LAB 14:00
DX: L03.116 Cellulitis of left lower limb (principal)
CPT/HCPCS: 87070; 87075; 87077; 87186; 87205

== ENCOUNTER 2024-02-26 16:40 | Inpatient (IN) | payer OTHER ==
[~2024-02-26] VITALS: Ht 160 cm; Wt 65.8 kg
[2024-03-01 12:34] VITALS: BP 174/84
== END 2024-03-01 13:59 | disposition home or self-care (01) | DRG 501 ==
LOC: ER 16:40 → SURS 16:41 → MEDS 16:41 → SURS 02-28 11:04
PROVIDERS: ADMIT Internal Medicine
PROC: 0KBT0ZZ Excision of Left Lower Leg Muscle, Open Approach (ICD-10-PCS; principal; 2024-02-27)
PROC: 0JQP0ZZ Repair Left Lower Leg Subcutaneous Tissue and Fascia, Open Approach (ICD-10-PCS; 2024-02-29)
DX: T87.44 Infection of amputation stump, left lower extremity (principal); L02.416 Cutaneous abscess of left lower limb; G62.9 Polyneuropathy, unspecified; B96.5 Pseudomonas (aeruginosa) (mallei) (pseudomallei) as the cause of diseases classified elsewhere; I25.10 Atherosclerotic heart disease of native coronary artery without angina pectoris; I10 Essential (primary) hypertension; E03.9 Hypothyroidism, unspecified; E11.9 Type 2 diabetes mellitus without complications; G89.29 Other chronic pain; Z88.0 Allergy status to penicillin; Z88.1 Allergy status to other antibiotic agents; Z88.2 Allergy status to sulfonamides; Z88.5 Allergy status to narcotic agent; Z88.8 Allergy status to other drugs, medicaments and biological substances; Z95.1 Presence of aortocoronary bypass graft; Z98.890 Other specified postprocedural states; Z79.2 Long term (current) use of antibiotics; Z79.899 Other long term (current) drug therapy; Y83.5 Amputation of limb(s) as the cause of abnormal reaction of the patient, or of later complication, without mention of misadventure at the time of the procedure

== ENCOUNTER → 2024-05-12 | Outpatient (CLI) | payer OTHER ==
[~2024-05-12] MED LIST changes: +ASPI81CH PO; +DOCU100 PO
[2024-05-12 15:02] LABS: Cholesterol 257 mg/dL (50-200); HDL Cholesterol 32 mg/dL (>39); Low Density Lipoprotein Chol 159 mg/dL (0-110); Triglycerides 328 mg/dL (30-160); Very Low Density Lipoprot Chol 65 mg/dL (6-32)
[2024-05-17 10:40] LABS: TESTOSTERONE, FREE BY DIALYSIS 36.7 pg/mL (47.0-244.0)
== END ==
LOC: LAB SHORT 12:32 → LAB 12:32
PROVIDERS: Student in an Organized Health Care Education/Training Program
DX: Z12.5 Encounter for screening for malignant neoplasm of prostate (principal); E29.1 Testicular hypofunction
CPT/HCPCS: 80061; 84402; 84403

== ENCOUNTER → 2024-10-07 | Outpatient (CLI) | payer OTHER ==
[2024-10-07 18:34] LABS: BASOPHILS ABSOLUTE AUTO 0.06 K/mm3 (0.00-0.23); BASOPHILS PERCENT AUTO 1 % (0-2); EOSINOPHILS ABSOLUTE AUTO 0.25 K/mm3 (0.00-0.68); EOSINOPHILS PERCENT AUTO 4 % (0-6); Hematocrit 47.4 % (37.0-53.0); Hemoglobin 16.3 g/dL (13.5-17.5); IMMATURE GRAN ABSOLUTE AUTO 0.01 K/mm3 (0.00-0.10); IMMATURE GRAN PERCENT AUTO 0 % (0-1); LYMPHOCYTES ABSOLUTE AUTO 1.84 K/mm3 (0.84-5.20); LYMPHOCYTES PERCENT AUTO 27 % (21-46); MONOCYTES ABSOLUTE AUTO 0.72 K/mm3 (0.16-1.47); MONOCYTES PERCENT AUTO 10 % (4-13); Mean Corpuscular HGB 30.5 pg (26.0-34.0); Mean Corpuscular HGB Conc 34.4 g/dL (31.5-36.5); Mean Corpuscular Volume 89 fL (80-100); Mean Platelet Volume 9.3 fL (9.1-12.4); NEUTROPHILS ABSOLUTE AUTO 4.05 K/mm3 (1.96-9.15); NEUTROPHILS PERCENT AUTO 58 % (41-73); Platelet Count 168 K/mm3 (150-400); RDW Standard Deviation 39.1 fL (35.1-46.3); Red Blood Cell Count 5.34 M/mm3 (4.30-5.90); White Blood Cell Count 6.93 K/mm3 (4.00-11.30)
[2024-10-07 18:58] LABS: Alanine Aminotransfer (ALT/SGP 47 U/L (12-78); Albumin, Blood 3.6 g/dL (3.4-5.0); Alk Phos 90 U/L (50-136); Anion Gap 8 mmol/L (3-11); Aspartate Aminotrans (AST/SGOT 29 U/L (12-37); Bilirubin, Total 0.6 mg/dL (0.1-1.0); Blood Urea Nitrogen 18 mg/dL (8-24); Bun/Creatinine Ratio 18.1 (12.0-20.0); CHOL/HDL RATIO 7.3; CO2, Blood 32 mmol/L (21-32); Calcium, Blood 9.5 mg/dL (8.5-10.1); Chloride, Blood 99 mmol/L (98-108); Cholesterol 234 mg/dL (50-200); Creatinine, Blood 0.99 mg/dL (0.60-1.20); Globulin, Blood 3.6 g/dL (2.2-4.0); Glomerular Filtration Rate 76 (60-); Glucose, Blood 76 mg/dL (70-99); HDL Cholesterol 32 mg/dL (>39); LDL/HDL RATIO 4.1; Low Density Lipoprotein Chol 131 mg/dL (0-110); Potassium, Blood 4.9 mmol/L (3.5-5.5); Sodium, Blood 134 mmol/L (136-145); Total Protein, Blood 7.2 g/dL (6.4-8.2); Triglycerides 354 mg/dL (30-160); Very Low Density Lipoprot Chol 70 mg/dL (6-32)
== END ==
LOC: LAB SHORT 17:57 → LAB 17:57
PROVIDERS: Nurse Practitioner Family
DX: I10 Essential (primary) hypertension (principal); E55.9 Vitamin D deficiency, unspecified; E78.2 Mixed hyperlipidemia
CPT/HCPCS: 80053; 80061; 82306; 84443; 85025